=== PATIENT | female | born 1995 | race Caucasian/White ===

== ENCOUNTER 2022-11-30 12:22 | Emergency (ER) | payer OTHER ==
--- OUTSIDE RECORDS SUMMARY | 2022-11-30 12:40 | XMS REPORT | Continuity of Care Document ---
:1995 Author Organization [facility] t Address [address] [facility] [address] [place] [address] Care Team Providers Name Role Phone Linda Davalos NP Primary Care Physician Beatriz Zacarias Attending Clinician Unavailable Chapin Tian NP Attending Clinician CHAPIN TIAN Attending Clinician Unavailable Doctor Unassigned, [place] Attending Clinician Unavailable Eileen Berger Attending Clinician Unavailable Vandana Li Attending Clinician Unavailable Unknown, Attending Attending Clinician Unavailable Deidra Ramirez MD Attending Clinician DEIDRA RAMIREZ Attending Clinician Unavailable Beatriz Zacarias Admitting Clinician Unavailable Eileen Berger Admitting Clinician Unavailable Physician, No Primary or Family Admitting Clinician Unavaila ble Payers Payer Name Policy Type Policy Number Effective Date Expiration Date S ource Problems Condition Condition Condition Status Onset Resolution Last Treating Co mments Source Name Details Category Date Date Treatment Clinician Date History of History of Disease Active 2021-06 U nivers ovarian ovarian 2-28 ity of cyst cyst 00:00: [address] Pain Pain Disease Active 2021-06 Univers pelvic pelvic 2-28 ity of 00:00: [address] Well woman Well woman Disease Active 2022-1 U nivers exam with exam with 2-28 ity of routine routine 00:00: [place] gynecologi gynecologi 00 Me dical dorcas exam dorcas exam Branch Insomnia Insomnia Disease Active Unive rs 6-30 ity of 00:00: [place] 00 Medical Branch ADHD ADHD Disease Active Univers 6-30 ity of 00:00: [place] [facility] Bipolar 1 Bipolar 1 Disease Active Uni vers disorder, disorder, 6-30 [place] History of History of Disease Active U nivers hysterecto hysterecto 6-19 it y of my my 00:00: [place] [facility] Endometrio Endometrio Disease Active U nivers sis sis 6-30 ity of 00:00: [place] [id number] Medical Branch Depression Depression Disease Active U nivers 6-30 ity of 00:00: [place] [address] Medical Branch Anxiety Anxiety Disease Active Univers 6-30 ity of 00:00: [place] [facility] No known No known Disease Unive rs active active ity of problems problems [place] [facility] Allergies, Adverse Reactions, Alerts Allergy Allergy Status Severity Reaction(s) Onset Inactive Treating Comm ents Source Name Type Date Date Clinician No Known DA Active U 2020-0 [facility] No Known DA Active U 2020-0 [facility] Allergie 7-20 [facility] s 00:[facility] No Known DA Active U 2020-0 [facility] Allergie 7-16 Clear s 00:[place]: [place] [facility] No Known DA Active U 2020-0 [facility] Allergie 7-16 Clear s 00:00: [place] [address] [facility] No Known DA Active U 2019-1 [facility] Allergie 1-17 Clear s 00:00: [place] [address] [facility] No Known DA Active U 2020-1 [facility] Allergie 1-17 Clear s 00:00: [place] [address] [facility] No Known DA Active U 2020-1 [facility] Allergie 0-19 [facility] s 00:[facility]: [address] No Known DA Active U 2020-1 [facility] Allergie 0-19 Woman[facility] s 00:00: [address] NO KNOWN Drug Active Univers ALLERGIE Class ity of S [facility] Social History Social Habit Start Date Stop Date Quantity Comments Source Exposure to 2022-05-30 2022-06-09 [facility] 13:08:00 [facility] (event) Branch Tobacco use and 2022-06-09 2022-06-09 Smokeless tobacco Un iversity of exposure 00:00:00 00:00:00 non-user [facility] Alcohol intake 2022-06-09 2022-06-09 Current drinker Unive rsity of 00:00:00 00:00:00 of alcohol [facility] (finding) [place] Sex Assigned At [birth year] Universit y of 00:00:00 00:00:00 [facility] Smoking Status Start Date Stop Date Source Tobacco smoking consumption Univ ersity of [facility] unknown Branch Never smoked tobacco [facility] Medications Ordered Filled Start Stop Current Ordering Indication Dosage Frequency Signature Comments Components Source Medication Medication Date Date Medication? Clinician (SIG) Name Name clonazePAM 2021-06 Yes TAKE ONE Uni vers 0.5 mg 0-26 (1) ity of tablet 00:00: TABLET(S) BY MOUTH Medical TWICE A Branch DAY NEEDED. clonazePAM 2021-06 Yes TAKE ONE Uni vers 0.5 mg 0-26 (1) ity of tablet 00:00: TABLET(S) [place] BY MOUTH Medical TWICE A Branch DAY NEEDED. ARIPiprazol Yes Univer s e (ABILIFY) 9-30 ity of 15 mg 00:00: [place] tablet 00 Medical Branch Venlafaxine Yes Univer s 225 mg TR24 9-30 ity of 00:00: [facility] ARIPiprazol Yes Univer s e 15 mg 9-30 ity of tablet 00:00: [facility] Venlafaxine Yes Univer s 225 mg TR24 9-30 ity of 00:00: [facility] ARIPiprazol Yes Univer s e 15 mg 9-30 ity of tablet 00:00: [facility] Venlafaxine Yes Univer s 225 mg TR24 9-30 ity of 00:00: Medical Branch dextroamphe Yes Univer s tamine-amph 6-30 ity of etamine 00:00: [place] (ADDERALL) 00 Medical 30 mg Branch tablet dextroamphe Yes Univer s tamine-amph 6-30 ity of etamine 30 00:00: [place] mg tablet 00 Medical Branch dextroamphe Yes Univer s tamine-amph 6-30 ity of etamine 30 00:00: [place] mg tablet Medical Branch zolpidem Yes Univers (AMBIEN) 10 06-13 ity of mg tablet 00:00: Medical Branch zolpidem 10 Yes Univer s mg tablet 06-13 ity of 00:00: Medical Branch zolpidem 10 Yes Univer s mg tablet 06-13 ity of 00:00: [place] 00 Medical Branch No known No Univers medications ity of [facility] No known No Univers medications ity of [facility] Immunizations Ordered Filled Immunization Date Status Comments [facility] e Immunization Name Name Influenza Virus 2022-03-09 Completed Universit y of Vaccine Quad IM, 00:00:00 [facility] dical Preserv and ABX Branch Free 6 MO-64 YRS TDAP 2022-03-09 Completed University of 00:00:00 [facility] Influenza Virus 2022-03-09 Completed Universit y of Vaccine Quad IM, 00:00:00 [facility] dical Preserv and ABX Branch Free 6 MO-64 YRS TDAP 2022-03-09 Completed University of 00:00:00 [facility] Influenza Virus 2022-03-09 Completed Universit y of Vaccine Quad IM, 00:00:00 [facility] dical Preserv and ABX Branch Free 6 MO-64 YRS TDAP 2022-03-09 Completed University of 00:00:00 [facility] SARS-COV-2 COVID-19 2020-09-05 Completed Unive rsity of VACCINE, BIVALENT 00:00:00 [facility] edical (MODERNA BOOSTER) Branch SARS-COV-2 COVID-19 2020-09-05 Completed Unive rsity of VACCINE, BIVALENT 00:00:00 [facility] edical (MODERNA BOOSTER) Branch SARS-COV-2 COVID-19 2020-09-05 Completed Unive rsity of VACCINE, BIVALENT 00:00:00 [place] Holli macdonald (MODERNA BOOSTER) Branch SARS-COV-2 COVID-19 2020-08-09 Completed Unive rsity of VACCINE - (MODERNA) 00:00:00 [facility] SARS-COV-2 COVID-19 2020-08-09 Completed Unive rsity of VACCINE - (MODERNA) 00:00:00 [facility] SARS-COV-2 COVID-19 2020-08-09 Completed Unive rsity of VACCINE - (MODERNA) 00:00:00 [facility] Vital Signs Vital Name Observation Time Observation Value Comments Source Systolic blood 2022-06-09 113 mm[Hg] University of pressure 19:17:00 [facility] Diastolic blood 2022-06-09 78 mm[Hg] University o f pressure 19:17:00 [facility] Heart rate 2022-06-09 97 /min [facility] 19:17:00 [facility] Body height 2022-06-09 162.6 cm University 19:17:00 [facility] Body weight 2022-06-09 85.276 kg University 19:17:00 [facility] BMI 2022-06-09 32.27 kg/m2 University 19:17:00 [facility] Oxygen saturation 2022-06-09 95 /min [facility] in Arterial blood 19:17:00 [facility] by Pulse oximetry [place] Systolic blood 2020-02-23 113 mm[Hg] University of pressure 03:01:00 [facility] Diastolic blood 2020-02-23 79 mm[Hg] University o f pressure 03:01:00 [facility] Heart rate 2020-02-23 67 /min University 03:01:00 [facility] Body temperature 2020-02-23 36.94 Shweta [facility] 03:01:00 [facility] Respiratory rate 2020-02-23 17 /min [facility] 03:01:00 [facility] Oxygen saturation 2020-02-23 99 /min [facility] in Arterial blood 03:01:00 [facility] by Pulse oximetry Branch Body height 2020-02-23 162.6 cm [facility] 01:45:00 [facility] Body weight 2020-02-23 77.111 kg Simultaneous University 01:45:00 filing. User may [place] [facility] not have seen Branch previous data. BMI 2020-02-23 29.18 kg/m2 [facility] 01:45:00 [facility] Systolic blood 2020-02-23 113 mm[Hg] [place] of pressure 03:01:00 [facility] Diastolic blood 2020-02-23 79 mm[Hg] [place] o f pressure 03:01:00 [facility] Heart rate 2020-02-23 67 /min [facility] 03:01:00 [facility] Body temperature 2020-02-23 36.94 Shweta [facility] 03:01:00 [facility] Respiratory rate 2020-02-23 17 /min [facility] 03:01:00 [facility] Oxygen saturation 2020-02-23 99 /min [facility] in Arterial blood 03:01:00 [facility] by Pulse oximetry [place] Body height 2020-02-23 162.6 cm [facility] :45:00 [facility] Body weight 2020-02-23 77.111 kg Simultaneous [facility] 01:45:00 filing. User may [place] [facility] not have seen Branch previous data. BMI 2020-02-23 29.18 kg/m2 [facility] 01:45:00 [facility] Procedures Procedure Date / Time Performed Performing Clinician [facility] ASSIGNMENT OF BENEFITS 2022-06-09 19:07:41 Doctor Unassigned, No [facility] Name [facility] [id number] 2020-06-14 00:00:00 CHAKR.07 [facility] [id number] 2020-06-14 00:00:00 CHAKR.07 [facility] US PELVIS > 2020-02-23 03:21:05 Deidra Ramirez [facility] 14 WEEKS [facility] Branch LIPASE 2020-02-23 02:56:[address] [facility] COMP. METABOLIC PANEL 2020-02-23 02:56:00 Deidra Ramirez [facility] ([id number]) [facility] CBC WITH DIFF 2020-02-23 02:56:[address] [facility] URINALYSIS 2020-02-23 01:54:[address] [facility] NOTICE OF PRIVACY 2020-02-23 01:37:10 Doctor Unassigned, No [facility] Name Medical [place] CONSENT/REFUSAL FOR 2020-02-23 01:36:53 Doctor Unassigned, No Un [facility] DIAGNOSIS AND Name Medical Branch TREATMENT Encounters Start End Encounter Admission Attending Care Care Encounter Source Date/Time Date/Time Type Type Clinicians Facility Department ID 2020-06-17 Inpatient MARTINEZ Luciano LD [id number] [facility] 10:00:00 Beatriz 46 [facility] [place] 2020-06-13 Inpatient NADER ZacariasWH ADRIENNE [id number] [facility] 16:46:00 Beatriz 38 [facility] [place] 2020-04-29 Inpatient NADER ZacariasWH ADRIENNE [id number] [facility] 11:47:00 Beatriz 52 [facility] [place] 2020-03-31 Inpatient NADER ZacariasWH ADRIENNE [id number] [facility] 21:16:00 Beatriz 71 [facility] [place] 2022-06-09 2022-06-09 Office Tammie [facility] [id number] Univers 13:00:00 13:30:00 Visit Chapin PORTILLO [id number] it y of WOMEN'S 4.2.7.2.686 [facility] [id number] [facility] 134 Branch 2022-06-09 2022-06-09 Outpatient R CHAPIN TIAN [facility] [id number] Univers 13:00:00 13:00:00 CHAPIN TIAN ity [facility] 2022-06-09 2022-06-09 Orders Doctor GARCIA [id number] Univers 00:00:00 00:00:00 Only Unassigned, NATHAN [id number] ity of [place] [facility] [id number] [facility] [id number] [facility] 009 Branch 2020-12-29 2020-12-30 Inpatient MARTINEZ Gibson MEDI.01 [id number] [facility] 16:32:00 13:38:00 Eileen 06 [facility] [place] 2020-12-26 2020-12-26 Outpatient NADER Berger LABO [id number] [facility] 14:52:00 14:52:00 Eileen 33 [facility] 2020-11-24 2020-11-24 Outpatient Vandana Crooks [facility] RADI F00 [id number] [facility] 14:31:00 14:31:00 96 Woman s [facility] 2020-02-27 2020-02-27 Letter Unknown, UNIVERSIT [id number] 00:00:00 00:00:00 (Out) Attending [facility] [id number] [facility] 4.2.7.2.686 [id number] [facility] 2020-02-27 2020-02-27 Letter Unknown, UNIVERSIT [id number] Univers 00:00:00 00:00:00 (Out) Attending [facility] [id number] ity of [facility] 4.2.7.2.686 [facility] [id number] [address] 2020-02-22 2020-02-22 Emergency [facility] [id number] 20:47:00 23:37:00 [facility] [id number] [place] 4.2.7.2.686 [place] [id number] [facility] 2020-02-22 2020-02-22 Emergency [facility] [id number] Univers 20:47:00 23:37:00 [facility] [id number] ity of [place] 4.2.7.2.686 [facility] [id number] [address] 2020-02-22 2020-02-22 Emergency X [facility] ERT [id number] Univers 20:47:00 20:47:00 [facility] Results Test Description Test Time Test Comments Results Result Comments Source UTERUS,OTHER THAN PROLAPSE/YARIEL 2020-12-31 11:17:00 Test Item Value Reference Range Interpretation Comme nts UTERUS,OTHER RUN DATE: THAN 12/31/20 [facility] PAGE 1 RUN TIME: 1913 Specimen Inquiry RUN USER: INTERFACE PROLAPSE/YARIEL PATIENT: (test code = EMMA SHAFFER [id number] LOC: [place] #: [id number] AGE/SX: ROOM: [facility] REG: [facility] 12/29/20REG DR: Eileen Berger MD : 89 BED: A DIS: 12/30/20 STATUS: DIS Matt TLOC: SPEC #: [id number] RECD: STATUS: OWEN FOLEY #: [id number] HARDEEP: 12/29/20- SUBM DR: Eileen Berger MD ENTERED: 12/30/20 SP TYPE: [facility]: ORDERED: LEVEL V SURGICA/6 CODES: [id number] - UTERUS, NOS [id number] - PERITONEUM, NO S PROCEDURES: LEVEL V SURGICA (Incomplete) TISSUES: PERITONEUM, NOS - PERITONEUM X5 UTERUS, NOS - UTERUS,CERVIX,BILATERAL TUBES CLINICAL HISTORY 25 year old, endometriosis (wpd) FINAL DIAGNOSIS Right posterior culdesac, excision: peritoneal tissue with fibrosis and bony histiocytes suggestive of en dometriosis Posterior culdesac, excision: peritoneal tissue with fibrosis and bony histiocytes suggest kandis of endometriosis Left posterior cervix, excision: peritoneal tissue with fibrosis and bony histiocyte s suggestive of endometriosis Left pelvic sidewall, excision: endometriosis Right pelvic sidewall, excis ion: endometriosis Uterus, bilateral fallopian tubes, hysterectomy and bilateral salpingectomy: cer vix - focal parakeratosis, no dysplasia identified endometrium - benign with hormone effect myometrium - no significant pathologic alteration uterine serosa - focal fibrous adhesions right and left fal lopian tubes - benign paratubal cysts CPT: 44305 x5, 82308 CONTINUED ON NEXT PAGE RUN DATE: 12/31/20 [facility] PAGE 2 RUN TIME: 1913 Specimen Inquiry RUN USER: INTERFACE SPEC #: [id number] PATIENT: EMMA SHAFFER #[id number] (Continued) FINAL DIAGNOSIS (Continued) lsh/wpd GROSS DESCRIPTION ANATOMIC SOURCE OF TISSUE (per Requisition): 1. Right posterior culdesac 2. Posterior culdesac 3. Left posterior cervix 4. Left pelvic sidewall 5. Right pelvic sidewall 6. Uterus, cervix, bilateral fallopian tubes Each specimen is labeled with the patient's name and medical r ecord number. Specimen #1 is designated "right posterior culdesac" and consists of a 0.6 cm orr-pin k soft tissue, submitted in toto in A1. Specimen #2 is designated "posterior culdesac" and consists of a 2.5 aggregate of orr-pink soft tissues, submitted in toto in B1. Specimen #3 is designated "left posterio r cervix" and consists of a 0.8 cm orr-pink soft tissue, submitted in toto in C1. Specimen #4 is design ated "left pelvic sidewall" and consists of a 1.0 cm orr-pink soft tissue, submitted in toto in D1. Spe cimen #5 is designated "right pelvic sidewall" and consists of a 2.0 cm orr-white soft tissue, submi tted in toto in E1. Specimen #6 is designated "uterus, cervix, bilateral fallopian tubes". The specim en consists of a 110 gm, 8.5 x 8 x 6 cm uterus with cervix (3.0 x 3.0 cm, with a 1.3 cm slit-like os) and bilateral tubes (7.5 x 0.9 cm right and left). The serosa is orr-pink with adhesions. The orr-pink endometrial cavity measures 3.5 x 2.5 cm. The endometrial thickness averages cm. The myometrium is orr-pink and trabecular with a 1.7 cm average thickness. The endocervix is orr-pink. The ectocervix is white-pink and dull. The right fallopian tube is pink-purple with fimbriae. Sectioning reveals a pinpoint lumen. The left fallopian tube is pink- purple with fimbriae. Sectioning reveals a pinpoin t lumen. Supervising Nurse sections are submitted as follows: F1 - anterior cervix F2 - posterior cervix F3 - anterior endomyometrium, full-thickness F4 - posterior endomyometrium with serosal adhesions CONTINUED ON NEXT PAGE RUN DATE: 12/31/20 [facility] PAGE 3 RUN TIME: 1913 Specimen Inquiry RUN USER: INTERFACE SPEC #: [id number] PATIENT: EMMA SHAFFER #[id number] (Continued) MIGNON HUBER (Continued ) F5 - right fallopian tube F6 - left fallopian tube ronnell/stephanie 12/30/20 Signed Charito Garcia MD 12/31/20 1117 END OF REPORT CBC W/AUTO [id number] 05:45:00 Test Item Value Reference Range Interpretation Comments WHITE BLOOD CELL (test code = WBC) 14.7 K/mm3 6.5-12.3 H RED BLOOD CELL (test code = RBC) 4.30 M/mm3 3.51-4.69 N HEMOGLOBIN (test code = HGB) 13.4 g/dL 10.1-13.8 N HEMATOCRIT (test code = HCT) 39.8 % 32.5-41.8 N MEAN CELL VOLUME (test code = MCV) 92.6 fL 84.6-96.6 N MEAN CELL HGB (test code = MCH) 31.2 pg 27.3-33.9 N MEAN CELL HGB CONCETRATION (test 33.7 gm/dL 32.0-34.2 N code = MCHC) RED CELL DISTRIBUTION WIDTH (test 12.4 % 12.2-16.3 N code = RDW) PLATELET COUNT (test code = PLT) 320 K/mm3 134-363 N MEAN PLATELET VOLUME (test code = 10.6 fL 9.2-12.7 N MPV) NEUTROPHIL % (test code = NT%) 84.6 % 57.9-77.3 H LYMPHOCYTE % (test code = LY%) 8.0 % 14.5-29.7 L MONOCYTE % (test code = MO%) 7.0 % 3.6-10.2 N EOSINOPHIL % (test code = EO%) 0.0 % 0.0-3.0 N BASOPHIL % (test code = BA%) 0.1 % 0.1-0.9 N NEUTROPHIL # (test code = NT#) 12.4 K/mm3 LYMPHOCYTE # (test code = LY#) 1.2 K/mm3 MONOCYTE # (test code = MO#) 1.0 K/mm3 EOSINOPHIL # (test code = EO#) 0 K/mm3 BASOPHIL # (test code = BA#) 0.0 K/mm3 RBC MORPHOLOGY REQUIRED (test code NORMAL NORMAL = RBCM) PLATELET MORPHOLOGY REQUIRED (test NORMAL NORMAL code = PLTMR) AG HEPATITIS B [id number] 21:41:00 Test Item Value Reference Range Interpretation Comments AG HEPATITIS B SURFACE (test code NONREACTIVE NONREACTIVE = HBSAG) IS CONSENT FORM SIGNED FOR HIV TESTING? YAB HEPATITIS C [id number] 21:41:00 Test Item Value Reference Range Interpretation Comments AB HEPATITIS C (test code = NONREACTIVE NONREACTIVE HCVAB) SIGNAL TO CUTOFF (test code = <0.02 <0.80 N CUTOFF) IS CONSENT FORM SIGNED FOR HIV TESTING? YAB HIV 1 21:41:00 Test Item Value Reference Range Interpretation Comments AB HIV 1 2 (test code = NONREACTIVE INDEX NONREACTIVE [id number]) IS CONSENT FORM SIGNED FOR HIV TESTING? YAB HIV 1 21:41:00 Test Item Value Reference Range Interpretation Comments AB HIV 1 2 (test code = NONREACTIVE INDEX NONREACTIVE [id number]) IS CONSENT FORM SIGNED FOR HIV TESTING? YCOVID 19 Asymptomatic IH [id number] 15:50:00 Test Item Value Reference Range Interpretation Comments COVID 19 NEGATIVE NEGATIVE This test has b een Asymptomatic IH AG authorize d only for the (test code = detection ofpro teins from COVNONPUIAG) SARS-CoV-2, not for any other viruses orpathogens. Ne gative results should be treated as presumptive andconfirmed wi th a molecular assay , if necessary for patientmanageme nt. Negative result s do not rule out COVID- 19 andshould not b e used as the sole basis for treatment orpat ient management deci sions, including infec tion controldecision s. Negative result s should be considered i n thecontext of a patient's recent exposure s, history and thepresence of clinical signs and symptoms consis tent withCOVID-19. T his test has not been FD A cleared or approved; th e test hasbeen authori zed by FDA under an Emerge ncy Use Authorization(E UA) for use by laborato elissa certified under the CLIA thatmeet the re quirements to perform mode rate, high or waivedcomple xity tests. This fernando t is authorized for use at thePoint of Car e (POC), i.e., in patien t care settingsoperati ng under a CLIA Certificat e of Waiver, Certifi corie ofCompliance, o r Certificate of Accreditation. This test is only authori zed for the duration of thedeclaration that circumstances e xist justifying theauthorizatio n of emergency use o f in vitro diagnostic test sfor detection and/o r diagnosis of CO VID-19 under Zlwjfex68 4(b)(1) of the Act, 21 U.S .C. 360bbb-3(b)(1), unless theauthorizatio n is terminated or r evoked sooner. AG HEPATITIS B [id number] 14:33:00 Test Item Value Reference Range Interpretation Comments AG HEPATITIS B SURFACE (test code NONREACTIVE NONREACTIVE = HBSAG) IS CONSENT FORM SIGNED FOR HIV TESTING? YAB HEPATITIS C [id number] 14:33:00 Test Item Value Reference Range Interpretation Comments AB HEPATITIS C (test code = NONREACTIVE NONREACTIVE HCVAB) SIGNAL TO CUTOFF (test code = <0.02 <0.80 N CUTOFF) IS CONSENT FORM SIGNED FOR HIV TESTING? YAB HIV 1 14:33:00 Test Item Value Reference Range Interpretation Comments AB HIV 1 2 (test code = [id number]) NONREACTIVE IS CONSENT FORM SIGNED FOR HIV TESTING? YHCG SERUM [id number] 13:30:00 Test Item Value Reference Range Interpretation Comments HCG SERUM QUAL (test code = HCGQL) NEGATIVE URINALYSIS [id number] 13:14:00 Test Item Value Reference Range Interpretation Comments UA COLOR (test code = COLU) STRAW YELLOW UA APPEARANCE (test code = CLEAR CLEAR APPU) UA GLUCOSE DIPSTICK (test code NEGATIVE NEG = DGLUU) UA BILIRUBIN DIPSTICK (test NEGATIVE NEG code = BILU) UA KETONE DIPSTICK (test code NEGATIVE NEG = KETU) UA SPECIFIC GRAVITY (test code 1.010 1.001-1.035 N = SGU) UA BLOOD DIPSTICK (test code = 2+ NEG A JACY) UA PH DIPSTICK (test code = 6.0 5-9 JOSIAH) UA PROTEIN DIPSTICK (test code NEGATIVE NEG = PROU) UA UROBILINIOGEN DIPSTICK NEGATIVE mg/dL NEG (test code = URO) UA NITRITE DIPSTICK (test code NEG NEG = LOLA) UA LEUKOCYTE ESTERASE DIPSTICK NEG NEG (test code = LEUU) UA WBC (test code = WBCU) 0-2 #/hpf NONE SEEN UA RBC (test code = RBCU) 0-2 #/hpf NONE SEEN UA EPITHELIAL CELLS (test code RARE #/HPF RARE-FEW = EPIU) UA HYALINE CAST (test code = 0-2 #/hpf A HYALU) UA MUCUS (test code = MUCU) RARE NONE SEEN URINE SAMPLE: CLEAN CATCHCBC W/AUTO [id number] 13:00:00 Test Item Value Reference Range Interpretation Comments WHITE BLOOD CELL (test code = WBC) 6.6 K/mm3 6.5-12.3 N RED BLOOD CELL (test code = RBC) 4.63 M/mm3 3.51-4.69 N HEMOGLOBIN (test code = HGB) 14.6 g/dL 10.1-13.8 H HEMATOCRIT (test code = HCT) 44.1 % 32.5-41.8 H MEAN CELL VOLUME (test code = MCV) 95.2 fL 84.6-96.6 N MEAN CELL HGB (test code = MCH) 31.5 pg 27.3-33.9 N MEAN CELL HGB CONCETRATION (test 33.1 gm/dL 32.0-34.2 N code = MCHC) RED CELL DISTRIBUTION WIDTH (test 12.5 % 12.2-16.3 N code = RDW) PLATELET COUNT (test code = PLT) 296 K/mm3 134-363 N MEAN PLATELET VOLUME (test code = 10.8 fL 9.2-12.7 N MPV) NEUTROPHIL % (test code = NT%) 49.9 % 57.9-77.3 L LYMPHOCYTE % (test code = LY%) 37.9 % 14.5-29.7 H MONOCYTE % (test code = MO%) 9.4 % 3.6-10.2 N EOSINOPHIL % (test code = EO%) 2.0 % 0.0-3.0 N BASOPHIL % (test code = BA%) 0.6 % 0.1-0.9 N NEUTROPHIL # (test code = NT#) 3.3 K/mm3 LYMPHOCYTE # (test code = LY#) 2.5 K/mm3 MONOCYTE # (test code = MO#) 0.6 K/mm3 EOSINOPHIL # (test code = EO#) 0.13 K/mm3 BASOPHIL # (test code = BA#) 0.0 K/mm3 RBC MORPHOLOGY REQUIRED (test code NORMAL NORMAL = RBCM) PLATELET MORPHOLOGY REQUIRED (test NORMAL NORMAL code = PLTMR) - US PELVIS [id number] 15:52:00 [facility] 1995 Sex: F Patient Name: EMMA SHAFFER Unit No: [id number] EXAMS: CPT CODE: [id number] US PELVIS COMPLETE 02610 PELVIC ULTRASOUND, 11/24/2020: COMPARISON: None CLINICAL HISTORY: IUD LOCATION TECHNIQUE: Transabdominal and endovaginal scanning was performed. FINDINGS: The uterus measures 8.0 x 4.3 x 5.4 cm. The endometrial stripe measured 4 mm in thickness. T-shaped IUD is located within the endometrium and appears to be in satisfactory position. No uterine fibroids were seen. The right ovary measures 4.1 x 2.4 x 2.1 cm and appears normal. The left ovary measures 3.9 x 2.1 x 2.5 cm and appears normal. Doppler flow is demonstrated in both ovaries. No free pelvic fluid. IMPRESSION: Intrauterine device is located within the uterus. No acute abnormality identified. at 1552 Reported and signed by: Roc Sullivan MD CC: Technologist: Juliana Hough RDMS Probe: Trnscrbd D/ (1552) [id number] Orig Print D/T: S: 11/24/2020 (9466) [facility] NAME: EMMA SHAFFER Radiology Department PHYS: Vandana Sebastian [facility] [address] : 1995 AGE: 25 SEX: F [place], [place] [address] LOC: F.RAD PHONE #: [phone] EXAM DATE: 11/24/2020 STATUS: REG CLI FAX #: [phone] RAD NO: Page 1 Signed Report Patient Name: EMMA SHAFFER Unit No: [id number] EXAMS: CPT CODE: [id number] US PELVIS COMPLETE 80777 (Continued) 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 subcutaneou sly for DVT prophylaxis. She was prepped and draped in the usual sterile barrow er. Dr. Watkins proceeded to perform cystoscopy and placed bilateral ureteral stents. De La Rosa catheter was then placed. Please see his dictation fo r details of his procedure. A weighted speculum was then placed in the vagina and anter ior lip of the cervix was grasped with single-tooth tenaculum. Uterus was gently sounded to 10 cm. Stay sutures of 0 Prolene were placed at 3 o'clock an d 9 o'clock. A 10-cm MELQUIADES uterine manipulator, 3.5 cm colpotomizer ring, a nd vaginal occluder were then placed in the uterus, on the cervix, and in the vagina respectively. These were attached to stay sutures. Vaginal occluder was f illed with 60 mL of saline. The patient was then placed flat. Attent ion was then turned to the abdomen. An 8-mm vertical incision was made through the umbilicus. With the abdomen tented up, Veress needle was passed through what was felt to be fascia and peritoneum. Hanging drop test was within normal limits. CO2 gas was then used to insufflate the abdomen with pressure limit set at 20 mmHg. After pressure limit was achieved, the Veress needle was removed, 8-mm bl adeless trocar was inserted easily. Laparoscope confirmed safe entry. The pa tient was then placed in Trendelenburg. Survey of the upper abdom en was within normal limits. Including the appendix, survey of the pelvis revealed appr oximately 8-week size uterus, normal tubes and ovaries bilaterally. There was noted to be adhesion band in the posterior cul-de-sac, so me areas that was suspicious for endometriosis were also noted in the posterior compartment. Three ancillary ports were then placed under direct visualization, one in the r ight lower quadrant, one in left lower quadrant, and AirSeal port i n the left upper quadrant. Laparoscope was removed, pressure limit was dropped to 15 mmHg. Robot was docked. Fenestrated bipolar instrument was placed in lef t lower quadrant. Monopolar scissors were placed in right lower quadrant. The pa tient has been pretreated with IV Benadryl, ICG dye was injected intravenously, and endometrial impl ants were noted on the left pelvic sidewall, left posterior cervix, in the posterior cul-de-sac, and right pelvic sidewall. No lesions were noted in the an terior cul-de-sac. Ureters were easily identified due to the lighted stents . At this point, Dr. Lynn proceeded to excise endometriosis in the posterior cul-de-sac as well as lysed the adhesion band. These implants in the band we re in close proximity to the rectum. Please see his dictation for details of his part of the procedure. Attention was then turned to the left pelvic alexia ewall. Ureter was identified. Peritoneum on the posterior left cervix was gras ped and incised. The endometrial implants were carefully circumscribe d and carefully excised using monopolar scissors. Attentio n was then turned to the implant on the left pelvic sidewall. Incision was made in the peritoneum. H ydrodissection was performed. Lesions were then carefully circumscribed and carefully excised using monopolar PATIENT NAME: EMMA SHAFFER [id number] scissors. Attention was then turned to t he right side. Ureter was again easily identified due to lighted stents. Incision was m sudhir in the peritoneum. Hydrodissection dissection was performed . Lesions on the right pelvic sidewall were carefully circumscribed and carefully excis ed. At this point, no other obvious lesions were noted. Attention was then t urned to the left round ligament. The left round lig ament was cauterized using bipolar instrument, then divided using monopolar scissors. Left fallopian tube was elevated and mesosalpinx was incised from the fimbriated end to the cornual area. Left utero-ovarian ligament was then cauterized using bipolar instrument, then divided using monopolar scissors. Bladder was th en back filled. Anterior leaf of the peritoneum was then incised and carried o ut medially to develop the bladder flap. Bladder was dissected off the lowe r uterine segment. Uterine vessels were skeletonized on left side by incisi ng posterior peritoneum. Uterine vessels were then cauterized at the leve l of internal cervical os. Attention was then turned to the right side. Rig ht round ligament was cauterized using bipolar instrument and then divided using monopolar scissors. Right fallopian tube was elevated and mesosalpin x was incised from the fimbriated end to the cornual area. Righ t uterine ligament was then cauterized using bipolar instrument, then divided u sing monopolar scissors. Anterior leaf of the peritoneum was then incised and carried o ut medially to meet the other side. Bladder was additionally dissected off the lower uterine segment on the right side. Uterine vessels were skeletonized on the right side by incising posterior peritoneum. Uterine vessels were then cauterized at the level of internal cervical os. After assuring that the bl adders were dissected off the lower uterine segment, colpotomy was performed a t the cervicovaginal junction anteriorly from 10 o'clock to 2 o'clock. Uterine vessels were then cauterized again on the right side and were divided using m onopolar scissors. Colpotomy was continued posteriorly over to the left side. Left uterine vessels were again cauterized and then divided using monopola r scissors. Colpotomy was completed. Uterus as well as bilateral t ubes was delivered through the vagina. A 0 V-Loc suture x2 was introduced in pelvis. St erile sponge in a glove was placed in vagina to maintain pneumoperit oneum. Vaginal cuff was then closed in a running fashion, first sta rting from left apex over to right apex and ran back towards the midline for 2 stitches. Second sutur e was ran from the right apex over to the left apex and also ran back towards the midline for 2 stitches. Sutures were cut flush with the cuff. Pe lvis was then thoroughly irrigated and inspected under low pressure. Good hemostasis wa s confirmed. Ureters again were identified easily bilaterally due to the li ghted stents. Good hemostasis was again noted. All instruments were then remov ed. Robot was undocked. Pneumoperitoneum was evacuated. Trocars were rem olvin. Umbilical port site fascia was closed using 0 Vicryl interru pted suture. Skin was closed using 4-0 Vicryl interrupted suture in all port sites and sealed with Dermabond. Marcaine 0.25% was injected in all port sites. De La Rosa cath eter and bilateral ureteral stents were removed. Speculum exam of va hallie revealed that the cuff was intact and hemostatic. No vaginal lacerations were note d. The patient was removed from dorsal lithotomy position, awoken from gene ral anesthesia without difficulty. The patient tolerated the procedure well. Throughout the case, Luis Willams acted as environmental emergencies assistant. He provid ed protection and retraction, performed suction for visual ization. He participated in positioning the patient as well as closure of the wo unds. Without his assistance, the surgery could not have been performed safely or to adequate accept ed medical standards. Therefore, his assistance was considered medical ly indicated and necessary. Dictated By: Eileen Berger MD PATIENT NAME: EMMA SHAFFER [id number] WT: OP:FMARCELLO//LIZZETH Conf#: [id number]/DID#: [id number] Authenticated by Eileen Berger MD On 01/05/20 11:36:46 AM Electronically Signed by Eileen Berger MD on at 1137 PATIENT NAME: EMMA SHAFFER 8406 2020-12-29 16:24:00-00:00 [id number] [facility] [address] [place] [address] PATIENT NAME: EMMA SHAFFER ADMIT DATE: 1 ACCOUNT NO: [id number] ROOM NO: [facility] AGE: 25 SEX: F ADMITTING PHYSICIAN: Eileen Berger MD ATTENDING PHYSICIAN: Eileen Berger MD OPERATION DATE: 12/29/2020 SURGEON: Roderick Lynn MD COMPUTER SYSTEMS SECURITY ADMINISTRATOR: Luis Willams SA PREOPERATIVE DIAGNOSES: 1. Intraoperative consultation for pelvic adhesi ons. 2. Endometriosis and pelvic adhesions. POSTOPERATIVE DIAGNOSES: 1. Intraoperative consultation for pelvic adhesi ons. 2. Endometriosis and pelvic adhesions. PROCEDURES PERFORMED: 1. Intraoperative consultation for excision of p elvic endometriosis and for lysis of pelvic adhesions. 2. Robotic-assisted laparoscopic lysis of deep p elvic adhesions. 3. A partial-thickness proctorrhaphy with primar y repair robotically laparoscopic-assisted. ANESTHESIA: General. DEVICES: None. IMPLANTS: None for this portion of procedure. COMPLICATIONS: None apparent. SPECIMENS: Right posterior cul-de-sac and left p osterior cul-de-sac. ESTIMATED BLOOD LOSS: 10 mL for this portion of the procedure. INDICATIONS: Intraoperative consultation was called for secondary to a history of pelvic adhesions for the patient stated that she was informed of the prior laparoscopic surgery that sh e had fusion between her rectum and back wall of the vagina. She was also noted to have significant e ndometriosis scarring. FINDINGS: Please see dictated operative report f rom Dr. Berger regarding her portion of procedure. Robot was docked and the p orts were in place. There was noted to be some pelvic scarring and pel lyla adhesions present, particularly on the left side deep in the pelvis at the posterio r cul-de-sac. There was also noted to be some scarring over the rectum deep i n the pelvis. PATIENT NAME: EMMA SHAFFER [id number] We then took control over th e robot and removed what appeared to be a scar over the right lower rectum at the peritoneal reflect ion in the septum between the rectum and vagina. This was very delicate and th e area was directly over the rectum. Upon doing so, we llanos d a partial-thickness proctorrhaphy which we closed with 3-0 Vicryl lemberting suture. No full thick ness was encountered. At this point, the left side was also no laura to be with some scarring bands and some adhesion, which was present. This seemed ab normal and there seemed to be some tenting of the rectum to the side. We isola laura the area and removed the peritoneum and some other sc arring that could have been endometriosis over this area and created what appeared to be a normal-ap pearing pelvis. This was done with careful blunt and sharp dissection. There was a stitch also placed in this area on the left side for hemostasis purposes. The area was checked for hemostasis, whi ch appeared to be intact. The case was then turned over to Dr. Berger for her portion. Pl ease see dictated operative report. The scar tissue was noted to be dense in the area of the low rectum on the left side. PROCEDURE IN DETAIL: The pat ient was under general anesthesia and the robot was docked and the patient was i n stable condition when intraoperative consultation was called for secondary to pelvic adhesions and potentially endometriosis adjacent to the lower rectum. There was noted to be some scarring between the rectovaginal septum including on the left side. Please see dictated operative report for details from Dr. Berger. At this point, the rectovaginal septum was inspe cted and there was scarring noted on the right posterior cul-de-sac. This wa s right over the rectum. We removed the peritoneum over this area and the sc arring. Upon doing so, there was noted to be a partial-thickness proctorrhaph y in this area. We oversewed this with 3-0 Vicryl lembert ing sutures with good reapproximation of tissue. No defect was appreciated. At this point, the left side was then inspected and there were these bands or folds that appeared to have formed from scarring in the area. We noted that ther e were some peritoneal pockets as well, which could represent endometriosis. Therefore, we e lected to remove this area as well and take down these bands of tissue between the rect um and the vagina. These were taken down with blunt and sharp, and minimal monica ctrocautery dissection. Upon doing so, we removed the left posterior cul-de-s ac peritoneum as well. All of the peritoneal resection site essentially remove d everything in the posterior cul-de-sac was close to 10 x 8 cm. At this point, the area was checked for hemostas is and appeared to be intact. On the left side, we did place a stitch for hemo stasis purposes. The case was then turned back over to Dr. Berger. Please see dictated operative report for details of procedure. All counts were correct at the end of this porti on of the procedure. Dictated By: Roderick Lynn MD WT: OP:F.ZO/NILESH/LIZZETH PATIENT NAME: EMMA SHAFFER [id number] Conf#: [id number]/DID#: [id number] Authenticated by Roderick Lynn MD On 12/31 10:58:03 AM at 1058 PATIENT NAME: EMMA SHAFFER [id number] 2020-06-15 06:42:00-00:00 [facility] ([facility]) OB Disch REPORT#:[id number] REPORT STATUS: Signed DATE:06/15/20 TIME: 641 PATIENT: EMMA COYNE UNIT #: [id number] ROOM/BED: [address] : [address] AGE: 24 SEX: F ATTEND: Yesenia Zacarias MD ADM AUTHOR: Soha Diego MD * ALL edits or amendments must be made on the [employer]/computer document * Subjective Subjective Admission EGA: Weeks: 38 Days: 4 EGA at delivery (wks/days): 38 weeks Status/day: post (day #1) Patient reports: Patient reports: Yes: normal lochia, pain management effective, tolerating po well, voiding well, voiding without pain, tolerating ambulatio n, flatus. No: complaints. Objective General VS: Vital Signs Date Temp Pulse Resp B/P B/P Mean Pulse Ox FiO2 06/14-06/15 98.2-98.5 63-69 18-19 102-129/63-76 96 Last Documented: Result Date Time B/P 06/15 0011 Temp 98.5 06/15 0011 Pulse 64 06/15 0011 Resp 18 06/15 0011 Pulse Ox 96 06/14 1610 B/P Mean 85.0 06/14 0245 PATIENT WEIGHT: Weight (lb): Weight (oz): Weight (kg): 89.850219 Physical Exam Neuro: Exam: alert, oriented x3, normal speech, CNII-X II grossly intact Abdomen: post gravid, soft, no abnormal tenderne ss, no guarding, no rebound tenderness Uterus: involution appropriate, non-tender Fundus: firm, below the umbilicus Lochia: normal Lower extremities: Edema: trace Results Findings/Data: Laboratory Tests: 06/13 06/13 1745 1733 Hematology WBC (6.6 - 12.1 K/mm3) 12.6 H RBC (3.45 - 5.01 M/mm3) 4.10 Hgb (10.7 - 13.9 g/dL) 11.7 Hct (32.1 - 42.1 %) 36.1 MCV (84.1 - 94.8 fL) 88 MCH (27 - 35 pg) 28.5 MCHC (32.2 - 34.1 gm/dL) 32.4 RDW (12.4 - 16.5 %) 13.1 Plt Count (133 - 385 K/mm3) 234 MPV (9.1 - 12.7 fl) 10.9 Neut % (Auto) (56.5 - 79.4 %) 78.4 Lymph % (Auto) (14.3 - 34.3 %) 14.2 L Baca % (Auto) (5.1 - 10.4 %) 6.4 Eos % (Auto) (0.1 - 3.0 %) 0.4 Baso % (Auto) (0.1 - 1.0 %) 0.2 Neut # (Auto) (K/mm3) 9.9 Lymph # (Auto) (K/mm3) 1.8 Baca # (Auto) (K/mm3) 0.8 Eos # (Auto) (K/mm3) 0.05 Baso # (Auto) (K/mm3) 0.0 Serology Treponema pallidum Ab (NONREACTIVE) NONREACTIVE Hep Bs Antigen (NONREACTIVE) NONREACTIVE Hepatitis C Antibody (NONREACTIVE) NONREACTIVE Hep C Ab Signal/Cutoff (<0.80) 0.07 HIV 1 2 Antibody (NONREACTIVE) NONREACTIVE SARS-CoV-2 Ag (Rapid) (NEGATIVE) NEGATIVE Discharge Summary General Problem List/A P: 1. 38 weeks gestation of Date of admission: Date of admission: 06/13/20 Admission diagnosis: labor-term Hospital course: spontaneous labor, spontaneous vag delivery, nml postop/ postpart care Procedures: spontaneous vaginal deliv Discharge condition: stable Discharge to: Home/Self Care Discharge diagnosis: full-term uncomp delivery Discharge management: less than 30 mins Baby A: Vaginal delivery: spontaneous status: live born Gender: male 1 minute: 8 5 minutes: 9 Anomalies: none noted Nursing data: The data set between the solid lines has been im ported from nursing documentation. Any exceptions have been noted be low under Provider comments. Delivery date A: 06/14/20 Delivery time i nfant A: 0026 Birthweight (gm) infant A: 3300 Feeding preference: Gender infant A: Male 1 minute infant A: 8 5 minutes infant A: 9 10 minutes A: Provider comments on imported nursing data: [] Plan: routine care, discharge today Discharge Instructions Instructions: routine instr sheet given Diet: Regular Activity: As Tolerated Additional discharge routines: None Discharge meds: Stop taking the following medications: VENLAFAXINE (EFFEXOR) 25 MG TAB 25 MILLIGRAM ORAL THREE TIMES A DAY. Continue taking these medications: PNV WITH FE FUMARATE/FA () 1 EACH TAB 1 TABLET ORAL DAILY. OMEPRAZOLE DR (OMEPRAZOLE) 20 MG TAB.DR 20 MILLIGRAM ORAL DAILY. METOPROLOL SUCC XL (TOPROL XL) 25 MG TAB.SR.24H 12.5 MILLIGRAM ORAL DAILY. Start taking the following new medications: IBUPROFEN (MOTRIN) 800 MG TAB 800 MILLIGRAM ORAL EVERY 8 HR NEEDED. as nee ded for PAIN Qty = 30 No Refills Prescriptions: e-prescribe Electronically Signed by Soha Diego MD 06/15/20 at 0727 RPT #:[id number] END OF REPORT 2020-06-14 07:51:00-00:00 [facility] ([facility]) OB Postpart Progr Note REPORT#:[id number] REPORT STATUS: Signed DATE:06/14/20 TIME: 075 PATIENT: EMMA COYNE UNIT #: [id number] ROOM/BED: [address] : 93 AGE: 24 SEX: F ATTEND: Yesenia Zacarias MD ADM AUTHOR: Beatriz Zacarias MD * ALL edits or amendments must be made on the el ectronic/computer document * Subjective Subjective Admission EGA: Weeks: 38 Days: 4 EGA at delivery (wks/days): 38 weeks Status/day: post (day 0) Comments: Doing well this AM. Sore, but pain tolerable. Llanos s ambulated and voided. is going well. Objective Nursing Documentation Review Nursing data: The data set between the solid lines has been im ported from nursing documentation. Any exceptions have been noted be low under Provider comments. Feeding preference: Provider comments on imported nursing data: [] General VS: Vital Signs Date Temp Pulse Resp B/P B/P Mean Pulse Ox FiO2 06/13-06/14 98.0-98.6 51-119 16-20 86-145/47-88 63.0-108.0 100 Last Documented: Result Date Time B/P 114/62 06/14 0300 Temp 98.4 06/14 0300 Pulse 57 06/14 0300 Resp 20 06/14 0300 B/P Mean 85.0 06/14 0245 Pulse Ox 100 06/14 0024 PATIENT WEIGHT: Weight (lb): Weight (oz): Weight (kg): 89.407594 Physical Exam Lungs: unlabored breathing Neuro: Exam: alert, normal speech Abdomen: soft, no abnormal tenderness Uterus: firm Fundus: firm, below the umbilicus Lacerations: Perineal laceration(s): None High vaginal laceration: no Result Findings/data: Laboratory Tests: 06/13 06/13 1745 1733 Hematology WBC (6.6 - 12.1 K/mm3) 12.6 H RBC (3.45 - 5.01 M/mm3) 4.10 Hgb (10.7 - 13.9 g/dL) 11.7 Hct (32.1 - 42.1 %) 36.1 MCV (84.1 - 94.8 fL) 88 MCH (27 - 35 pg) 28.5 MCHC (32.2 - 34.1 gm/dL) 32.4 RDW (12.4 - 16.5 %) 13.1 Plt Count (133 - 385 K/mm3) 234 MPV (9.1 - 12.7 fl) 10.9 Neut % (Auto) (56.5 - 79.4 %) 78.4 Lymph % (Auto) (14.3 - 34.3 %) 14.2 L Baca % (Auto) (5.1 - 10.4 %) 6.4 Eos % (Auto) (0.1 - 3.0 %) 0.4 Baso % (Auto) (0.1 - 1.0 %) 0.2 Neut # (Auto) (K/mm3) 9.9 Lymph # (Auto) (K/mm3) 1.8 Baca # (Auto) (K/mm3) 0.8 Eos # (Auto) (K/mm3) 0.05 Baso # (Auto) (K/mm3) 0.0 Serology Treponema pallidum Ab (NONREACTIVE) NONREACTIVE Hep Bs Antigen (NONREACTIVE) NONREACTIVE Hepatitis C Antibody (NONREACTIVE) NONREACTIVE Hep C Ab Signal/Cutoff (<0.80) 0.07 HIV 1 2 Antibody (NONREACTIVE) NONREACTIVE SARS-CoV-2 Ag (Rapid) (NEGATIVE) NEGATIVE Diagnosis, Assessment Plan Diagnosis, Assessment Plan Problem List/A P: 1. 38 weeks gestation of Assessment: nml progress, breast feed ing w/o diff Plan: routine care, discharge tomorro w at 0752 RPT #:[id number] END OF REPORT 2020-06-14 00:41:00-00:00 [facility] ([facility]) OB Delivery Note REPORT#:[id number] REPORT STATUS: Signed DATE:06/14/20 TIME: 004 PATIENT: EMMA COYNE UNIT #: [id number] ROOM/BED: [address] : 93 AGE: 24 SEX: F ATTEND: Yesenia Zacarias MD ADM AUTHOR: Beatriz Zacarias MD * ALL edits or amendments must be made on the el ectronic/computer document * OB Delivery Nursing Documentation Review Nursing data: The data set between the solid lines has been im ported from nursing documentation. Any exceptions have been noted be low under Provider comments. _ ROM date: ROM time: Membranes rupture method: AROM Amniotic fluid color: Clear Amniotic fluid amount: Steroids prior to arrival: Antibiotic prophylaxis given: evaluation at delivery: Delivery date infant A: Delivery time infant A: Birthweight (gm) A: Weight (lb) infant A: Weight (oz) A: Gender A: Male 1 minute infant A: 5 minutes infant A: 10 minutes A: Cord pH obtained infant A: Vacuum time infant A: Vacuum # pulls A: Vacuum # popoffs infant A: QBL at delivery: __ Provider comments on imported nursing data: [] Pre-delivery GBS status: GBS status: negative evaluation at delivery: NRP certified pe rsonnel Admission EGA: Weeks: 38 Days: 4 EGA at delivery (wks/days): 38 weeks Baby A Information Baby A information Delivery date: 06/14/20 Delivery time: 25 status: live born Wt of baby: not yet available Gender: male 1 minute: 8 5 minutes: 9 Presentation: vertex Anomalies: none noted ABG details Baby A Cord blood gases: not collected Nuchal cord Baby A Nuchal cord: double nuchal cord and body cord x 1 Vaginal Delivery Vaginal delivery: Labor: augmented Medications/Devices used: oxytocin Vaginal delivery: spontaneous Amniotic fluid: clear Anesthesia type: epidural anesthesia Episiotomy: none Episiotomy repair: not applicable Laceration repair: not required Placenta: spontaneous, expressed, intact Post delivery meds used: oxytocin Count: correct Mother's condition: mother stable Infant's condition: infant stable in room Lacerations: Perineal laceration(s): None High vaginal laceration: no Extraction details OVD performed: no Shoulder dystocia present: no Blood Loss/Details Blood loss at delivery: <1000 ml, no more than e xpected EBL at delivery (ml's): 300 at 0044 RPT #:[id number] END OF REPORT 2020-06-13 22:13:00-00:00 [facility] ([facility]) OB Intrapart Prog Note REPORT#:[id number] REPORT STATUS: Signed DATE:06/13/20 TIME: 2212 PATIENT: EMMA COYNE UNIT #: [id number] ROOM/BED: [address] : 93 AGE: 24 SEX: F ATTEND: Beatriz Zacarias MD ADM AUTHOR: Beatriz Zacarias MD * ALL edits or amendments must be made on the el [employer]/computer document * Subjective Subjective Admission EGA (wks/days): 38 weeks Comments: Comfortable s/p epidural Objective Nursing Documentation Review Nursing data: The data set between the solid lines has been im ported from nursing documentation. Any exceptions have been noted be low under Provider comments. __ ROM date: ROM time: __ Provider comments on imported nursing data: [] General VS: Last Documented: Result Date Time B/P Mean 90.0 06/13 2159 B/P 123/71 06/13 215 Pulse 75 06/13 215 Temp 98.6 06/13 1910 Resp 16 06/13 191 Vital Signs Date Temp Pulse Resp B/P B/P Mean Pulse Ox FiO2 06/13 98.6 59-90 16 117-136/68-88 90.0-104.0 PATIENT WEIGHT: Weight (lb): Weight (oz): Weight (kg): 89.724424 Objective Cervical/ exam: Dilatation (cm): 5/50/-2, AROM copious clear fl uid Pelvis exam: Clinically adequate for this fetus: yes Uterine activity: Monitor: toco Frequency (description): regular (q 3-4 min) FHR Evaluation Baby A: Baby A baseline: 130 bpm Baby A variability: moderate 6-25 bpm Baby A accelerations: 15 X 15 Baby A decelerations: none Baby A FHR category: category 1 Result Findings/Data: Laboratory Tests: 06/13 06/13 1745 1733 Hematology WBC (6.6 - 12.1 K/mm3) 12.6 H RBC (3.45 - 5.01 M/mm3) 4.10 Hgb (10.7 - 13.9 g/dL) 11.7 Hct (32.1 - 42.1 %) 36.1 MCV (84.1 - 94.8 fL) 88 MCH (27 - 35 pg) 28.5 MCHC (32.2 - 34.1 gm/dL) 32.4 RDW (12.4 - 16.5 %) 13.1 Plt Count (133 - 385 K/mm3) 234 MPV (9.1 - 12.7 fl) 10.9 Neut % (Auto) (56.5 - 79.4 %) 78.4 Lymph % (Auto) (14.3 - 34.3 %) 14.2 L [place] % (Auto) (5.1 - 10.4 %) 6.4 Eos % (Auto) (0.1 - 3.0 %) 0.4 Baso % (Auto) (0.1 - 1.0 %) 0.2 Neut # (Auto) (K/mm3) 9.9 Lymph # (Auto) (K/mm3) 1.8 [place]aca # (Auto) (K/mm3) 0.8 Eos # (Auto) (K/mm3) 0.05 Baso # (Auto) (K/mm3) 0.0 Serology Treponema pallidum Ab (NONREACTIVE) NONREACTIVE Hep Bs Antigen (NONREACTIVE) NONREACTIVE Hepatitis C Antibody (NONREACTIVE) NONREACTIVE Hep C Ab Signal/Cutoff (<0.80) 0.07 HIV 1 2 Antibody (NONREACTIVE) NONREACTIVE SARS-CoV-2 Ag (Rapid) (NEGATIVE) NEGATIVE Diagnosis, Assessment Plan Problem List/A P: 1. 38 weeks gestation of Assessment: normal FHR pattern, normal progress of labor, stable, doing well Plan: anticipate vag delivery, epidural anesthes ia, continue oxytocin at 2215 RPT #:[id number] END OF REPORT 2020-06-13 18:08:00-00:00 [facility] ([facility]) DT History Physical REPORT#:[id number] REPORT STATUS: Signed DATE:06/13/20 TIME: 1808 PATIENT: EMMA COYNE UNIT #: [id number] ROOM/BED: [facility] : 93 AGE: 24 SEX: F ATTEND: Yesenia Zacarias MD ADM AUTHOR: Beatriz Zacarias MD * ALL edits or amendments must be made on the el [employer]/computer document * History Physical History Physical CC: contractions HPI: 24 year old @ 3 8 weeks here for contractions. Patient has a history of rapid labor with her last child. She has been roseline every 5-6 minutes for the last 2 hours. PERSONAL INFO: LABS: Blood type/ AB screen: A positive / negative CBC: 13.8/42.5 < 270 Rubella: Immune 1.44 HIV: NR HepBsAg Neg RPR: NR Urine culture: Neg Pap:11/07/19 NILM GC/CT/Trich:Neg MSaFP: negative Genetic testing: NIPT negative, its a boy! Carrier screening: negative Hgb Electro: negative Anatomy U/S: Dr. Mosquera 02/04/20 EFW 62%ile norm al anatomy and screening echo due to maternal afib, variable presentation and anterior placenta Growth US (06/02): vertex EFW 76%ile 3318g 2nd trimester labs: CBC: 12.2 / 36.0 < 218 1hr GTT: 67 3rd trimester CBC: 11.7 / 35.0 < 231 3rd trimester RPR: NR 3rd trimester HIV: negative GBS: negative OB CHECKLIST: Zika precautions- discussed [employer] [employer]ist: near home, Dr. Hayden in the hospit al feeding: breastfed first for 6 weeks, sec ond she stopped after the hospital due to problems with latching. Desires to try again - consult in hospital Pain management: desires unmedicated (did with her daughter) PN Class: discussed PP Depression: discussed in detail PP Contraception: desires PP BTL if , v asectomy otherwise Dietary counseling: discussed Flu vaccine: 04/11/20 Tdap vaccine: 04/24/20 [place]: discussed Blood products: accepts Circumcision:desires Cord Blood: discussed Pelvis clinically adequate: yes EFW under 5000 gm: yes OB history: G1. 2012 M 7lb 16oz epidural, preeclampsia G2. 2014 F 7lb 16oz no epidural, precipito us labor G3. current Past medical history: symptomatic palpitations, depression / anxiety, endometriosis Past surgical history: laparoscopy (2019) Allergies: NKDA Meds: PNV Objective BP 138/79 HR 93 T 98.2 Gen NAD Abdomen soft gravid NT SVE 3/60/-3 per RN Ext no edema FHTs 140s / moderate variability / positive acce ls / no decels [place] ctx q 3-4 min A/P: 24 year old @ 38 weeks here for early labor with history of rapid labor progression 1. Labor: discussed with patient options , recommend admission for augmentation given regular painful contra ctions and history of rapid labor (patient lives 45 minutes from the hospital), agreed, will admit a nd augment with pitocin 2x2 2. SIUP @ 38 weeks: FHTs cat I 3. GBS negative 4. Pain: epidural on request 5. Rh positive, rubella immune, its a boy! (yolanda res circumcision) at 1930 RPT #:[id number] END OF REPORT 2020-04-29 12:39:00-00:00 [facility] ([facility]) DT History Physical REPORT#:[id number] REPORT STATUS: Signed DATE:04/29/20 TIME: 1239 PATIENT: EMMA COYNE UNIT #: [id number] ROOM/BED: : 93 AGE: 24 SEX: F ATTEND: Yesenia Zacarias MD ADM DT: AUTHOR: Beatriz Zacarias MD * ALL edits or amendments must be made on the [employer]/computer document * History Physical History Physical CC: nausea, vomiting, heartburn HPI: 24 year old @ 3 2 weeks here for complaint of nausea / vomiting and heartburn for the last 3 days. She reports inter mittent vomiting over the weekend, minimal fluid intake and only eating to ast. Non-bloody/ non-bilious emesis. Denies any fevers/ chills. She e ndorses significant hearburn requiring frequent dosing of Tums associated but no relief . Also reports worsening constipation, her baseline i s q 2-3 days and recently has increased to every 4-5 days. Today, reports headach e and dizziness on ambulation, prompting her to call the office, routed to [facility] fo r evaluation. Took tylenol and drank two bottles of water en route and reports dizziness and LLANOS impr olvin with these interventions OB history: , x 2 Past medical history: endometriosis, atr ial fibrillation, depression / anxiety Past surgical history: laparoscopy 2019 Allergies NKDA Meds: PNV Objective: BP 131/72 HR 97 Temp 98.2 F Gen NAD Abdomen soft gravid NT, mild epigastric TTP no r ebound/ guarding, negative murphys sign Ext no edema FHTs 130s / moderate variability / positive acce ls no decels [place] no ctx NST > 30 minutes reviewed by me LABS Laboratory Tests 04/29 1240 Chemistry Sodium (135 - 145 mEq/L) 136 Potassium (3.5 - 5.0 mEq/L) 4.8 Chloride (100 - 115 mEq/L) 103 Carbon Dioxide (22 - 31 mEq/L) 27 Anion Gap (10 - 20) 11.00 BUN (7 - 18 mg/dL) 7 Creatinine (0.5 - 1.0 mg/dL) 0.5 Glomerular Filtr Rate (>60 ml/min) 149 Glucose (65 - 110 mg/dL) 99 Calcium (8.4 - 10.2 mg/dL) 8.8 Total Bilirubin (0.2 - 1.0 mg/dL) 0.4 AST (15 - 37 units/L) 47 H ALT (12 - 78 units/L) 15 Total Alk Phosphatase (46 - 116 units/L) 97 Total Protein (6.3 - 8.2 gm/dL) 6.1 L Albumin (3.4 - 4.8 gm/dL) 2.6 L Amylase (30 - 110 units/L) 51 Lipase (73 - 393 units/L) 136 Laboratory Tests 04/29 1240 Hematology WBC (6.6 - 12.1 K/mm3) 9.4 RBC (3.45 - 5.01 M/mm3) 3.80 Hgb (10.7 - 13.9 g/dL) 11.7 Hct (32.1 - 42.1 %) 35.3 MCV (84.1 - 94.8 fL) 93 MCH (27 - 35 pg) 30.8 MCHC (32.2 - 34.1 gm/dL) 33.1 RDW (12.4 - 16.5 %) 12.5 Plt Count (133 - 385 K/mm3) 223 MPV (9.1 - 12.7 fl) 10.7 Neut % (Auto) (56.5 - 79.4 %) 76.4 Lymph % (Auto) (14.3 - 34.3 %) 15.2 [place]aca % (Auto) (5.1 - 10.4 %) 7.3 Eos % (Auto) (0.1 - 3.0 %) 0.6 Baso % (Auto) (0.1 - 1.0 %) 0.2 Neut # (Auto) (K/mm3) 7.2 Lymph # (Auto) (K/mm3) 1.4 [place] # (Auto) (K/mm3) 0.7 Eos # (Auto) (K/mm3) 0.06 Baso # (Auto) (K/mm3) 0.0 Assessment: poorly controlled heartburn, dehydra tion Plan: Symptoms improved after IVF bolus, reglan and maalox. Rx Reglan and omeprazole, discussed importance of IVF hydration and bowel regimen. ER return precautions reviewed at 1502 RPT #:[id number] END OF REPORT 2020-03-31 22:00:00-00:00 [facility] ([facility]) OB Triage Visit REPORT#:[id number] REPORT STATUS: Signed DATE:03/31/20 TIME: 2199 PATIENT: EMMA COYNE UNIT #: [id number] ROOM/BED: : 93 AGE: 24 SEX: F ATTEND: Yesenia Zacarias MD ADM DT: AUTHOR: Irma Forrest MD * ALL edits or amendments must be made on the el [employer]/computer document * History Chief complaint HPI: Emma is a 34 y/o @28w0d coming in 24h after intercourse. She says she has had bleeding that starte d this PM and went through 3 panties with moisture. She says she has had lower abd pressure and pain that is worse with standing. Does not think it is contractions, no dysuria/UT I sx. Has not had it before with other babies. history: : 3 Term: 2 : 0 Abortus: 0 Living children: 2 Previous : none Current Current : EDC: 06/23/20 EGA (weeks/days): 28w0d Past history Past medical history: A fib, bipolar/anxiety Past surgical history: Laparoscopy for endometri osis Social history: no alcohol use, no tobacco use, no drug use Medications: Prenatals Allergies Coded Allergies: No Known Allergies (03/31/20) Objective General VS: Patient Weight Weight (lb): Weight (oz): Weight (kg): 79.347323 131/69 Physical Exam: Cervix: SSE: no blood, no fluid with valslva, no cough. Uterus: normal Cervical/ exam: Dilatation (cm): 0 - closed Effacement (%): 0 station: - 5 (very anterior) FHR evaluation: Baseline: 145 bpm Variability: moderate 6-25 bpm Accelerations: 15 X 15 Decelerations: none Uterine activity: Monitor: toco Frequency (description): none Diagnosis, Assessment Plan Diagnosis, Assessment Plan Free text A P: 24 y/o @28w0d with pelvic floor spasm -no bleeding noted, likely postcoital -rec birthing ball, possible massage or yoga -precautions reviewed at 2212 RPT #:[id number] END OF REPORT 2020-03-31 22:00:00-00:00 [facility] ([facility]) OB Triage Visit REPORT#:[id number] REPORT STATUS: Signed DATE:03/31/20 TIME: 2199 PATIENT: EMMA COYNE UNIT #: [id number] ROOM/BED: : 93 AGE: 24 SEX: F ATTEND: Yesenia Zacarias MD ADM DT: AUTHOR: Irma Forrest MD * ALL edits or amendments must be made on the el [employer]/computer document * See Addendum History Chief complaint HPI: Emma is a 34 y/o @28w0d coming in 24h after intercourse. She says she has had bleeding that starte d this PM and went through 3 panties with moisture. She says she has had lower abd pressure and pain that is worse with standing. Does not think it is contractions, no dysuria/UT I sx. Has not had it before with other babies. history: : 3 Term: 2 : 0 Abortus: 0 Living children: 2 Previous : none Current Current : EDC: 06/23/20 EGA (weeks/days): 28w0d Past history Past medical history: A fib, bipolar/anxiety Past surgical history: Laparoscopy for endometri osis Social history: no alcohol use, no tobacco use, no drug use Medications: Prenatals Allergies Coded Allergies: No Known Allergies (03/31/20) Objective General VS: Patient Weight Weight (lb): Weight (oz): Weight (kg): 79.273802 131/69 Physical Exam: Cervix: SSE: no blood, no fluid with valslva, no cough. Uterus: normal Cervical/ exam: Dilatation (cm): 0 - closed Effacement (%): 0 station: - 5 (very anterior) FHR evaluation: Baseline: 145 bpm Variability: moderate 6-25 bpm Accelerations: 15 X 15 Decelerations: none Uterine activity: Monitor: toco Frequency (description): none Diagnosis, Assessment Plan Diagnosis, Assessment Plan Free text A P: 24 y/o @28w0d with pelvic floor spasm -no bleeding noted, likely postcoital -rec birthing ball, possible massage or yoga -precautions reviewed at 2212 Addendum 1: 03/31/20 221 by Irma Forrest MD Pt also complained of swollen vagina today that has resolved. at 2219 RPT #:[id number] END OF REPORT
[2022-11-30] MEDS ORDERED: NA CHLORIDE 0.9% 1,000 ML ONE (12:59)
[2022-11-30 13:16] LABS: Hematocrit 38.9 % (36.0-45.0); Lymphocytes % 22.7 % (15.3-44.8); MCV 92.7 fL (80-100); MPV 7.8 fL (7.6-11.3)
[2022-11-30 13:17] LABS: Specific Gravity 1.005 (1.005-1.030); Urine Bilirubin NEGATIVE (Negative); Urine Blood Negative (Negative); Urine Clarity Clear (Clear); Urine Color Colorless (Yellow); Urine Glucose NEGATIVE (Negative); Urine Protein NEGATIVE (Negative); Urine Urobilinogen Normal (Normal)
--- NOTE | 2022-11-30 13:21 | RAD REPORT ---
EXAM DESCRIPTION: Lori Single View11/30/2022 12:46 pm CLINICAL HISTORY: cough COMPARISON: none FINDINGS: The lungs appear clear of acute infiltrate. The heart is normal size IMPRESSION: No acute abnormalities displayed
[2022-11-30 13:23] LABS: Protime INR 0.92
[2022-11-30 13:25] LABS: Barbiturates NEGATIVE (NEGATIVE); Benzodiazepines NEGATIVE (NEGATIVE); Cocaine NEGATIVE (NEGATIVE); METHAMPHETAM NEGATIVE (NEGATIVE); Methadone NEGATIVE (NEGATIVE); Opiates NEGATIVE (NEGATIVE); Phencyclidine NEGATIVE (NEGATIVE); THC Cannibis NEGATIVE (NEGATIVE)
[2022-11-30 13:42] LABS: ALT/SGPT 31 U/L (13-56); AST/SGOT 15 U/L (15-37); Albumin 3.6 g/dL (3.4-5.0); Alkaline Phosphatase 96 U/L (45-117); BUN Blood Urea Nitrogen 6 mg/dL (7-18); Bicarbonate 24 mEq/L (21-32); Bilirubin Total 0.2 mg/dL (0.2-1.0); Glomerular Filtration Rate 121 ml/min (=/>90); Glucose Level 102 mg/dL (74-106); Lipase 52 U/L (13-75); Magnesium 1.8 mg/dL (1.6-2.4); NT PRO-BNP 62 pg/mL (<125); Potassium 3.7 mEq/L (3.5-5.1); Sodium Level 141 mEq/L (136-145); Troponin High Sensitivity 9.3 pg/mL (<58.9)
[2022-11-30 13:43] LABS: Bilirubin Direct < 0.1 mg/dL (0-0.2); Bilirubin Indirect, Calculated ND mg/dL (0.2-0.8)
--- NOTE | 2022-11-30 14:38 | RAD REPORT ---
EXAM DESCRIPTION: CT - Chest For Pe Angio - 11/30/2022 2:15 pm CLINICAL HISTORY: Chest pain COMPARISON: None. TECHNIQUE: Dynamically enhanced axial 3 mm thick images of the chest were obtained during administra tion of 100 mL Isovue 370 IV contrast. Coronal and oblique reconstruction images were generated and r eviewed. Exam utilizes a protocol for optimal evaluation of pulmonary arterial tree. Maximum intensity projections 3D imaging was utilized All CT scans are performed using dose optimization technique as appropriate and may include automated exposure control or mA/KV adjustment according to patient size. FINDINGS: The opacification of the pulmonary arteries is suboptimal. No gross central pulmonary embo saúl seen A thoracic aortic aneurysm is not noted. A pleural effusion is not seen. A pericardial effusion is not seen. A lung consolidation is not present. IMPRESSION: No gross central pulmonary embolus seen
--- NOTE | 2022-11-30 15:18 | RAD REPORT ---
EXAM DESCRIPTION: USExtrem Venous W Compress Bil11/30/2022 2:44 pm CLINICAL HISTORY: Leg pain COMPARISON: none FINDINGS: The common femoral, superficial femoral, greater saphenous, popliteal and posterior tibial veins bilaterally are compressible and demonstrate augmentation. Doppler demonstrates good flow. Grayscale, color and spectral analysis performed on all vessels IMPRESSION: No evidence of deep venous thrombosis involving either lower extremity.
--- NOTE | 2022-11-30 15:27 | ER ---
Nurse's Notes [facility] Name: Emma Velarde Age: 27 yrs Sex: Female : 1995 Arrival Date: 11/30/2022 Time: 12:22 Bed 18 Private MD: Diagnosis: Palpitations;Chest pain, unspecified;Adverse effect of other drugs, medicaments and biological substances Presentation: 11/30 12:23 Chief complaint: Patient states: "I started a new medication this morning and my aa5 resting heart rate has been 150". Pt reports SOB. 12:23 Coronavirus screen: At this time, the client does not indicate any symptoms associated aa5 with coronavirus-19. Ebola Screen: Patient denies travel to an Ebola-affected area in the 21 days before illness onset. Initial Sepsis Screen: Does the patient meet any 2 criteria? HR > 90 bpm. Does the patient have a suspected source of infection? No. Patient's initial sepsis screen is negative. Risk Assessment: Do you want to hurt yourself or someone else? Patient reports no desire to harm self or others. Onset of symptoms was November 30, 2022. 12:23 Acuity: JES 3 aa5 12:23 Method Of Arrival: Ambulatory aa5 Triage Assessment: 15:54 General: Appears in no apparent distress. Respiratory: Reports. db 15:55 General: Behavior is calm, cooperative. 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 - Social history:: Smoking status: Patient denies any tobacco usage or history of. Screenin:14 [facility] ED Fall Risk Assessment (Adult) History of falling in the last 3 months, db including since admission No falls in past 3 months (0 pts) Confusion or Disorientation No (0 pts) Intoxicated or Sedated No (0 pts) Impaired Gait No (0 pts) Mobility Assist Device Used No (0 pt) Altered Elimination No (0 pt) Score/Fall Risk Level 0 - 2 = Low Risk Oriented to surroundings, Maintained a safe environment. Abuse screen: Denies threats or abuse. Denies injuries from another. Nutritional screening: No deficits noted. Tuberculosis screening: No symptoms or risk factors identified. Assessment: 13:00 Reassessment: Patient appears in no apparent distress at this time. Patient and/or db family updated on plan of care and expected duration. Pain level reassessed. Patient is alert, oriented x 3, equal unlabored respirations, skin warm/dry/pink. General: Appears in no apparent distress. comfortable, Behavior is calm, cooperative. Pain: Complains of pain in chest. Neuro: Level of Consciousness is awake, alert, obeys commands, Oriented to person, place, time, situation. Cardiovascular: Rhythm is regular. Respiratory: Airway is patent Respiratory effort is even, unlabored, Respiratory pattern is regular, symmetrical, Breath sounds are clear. GI: Abdomen is flat. 14:49 Reassessment: Patient appears in no apparent distress at this time. patient returned to db room from radiology. 15:54 Reassessment: Patient appears in no apparent distress at this time. Patient and/or db family updated on plan of care and expected duration. Pain level reassessed. Patient is alert, oriented x 3, equal unlabored respirations, skin warm/dry/pink. Patient states feeling better. Patient states symptoms have improved. Vital Signs: 12:23 BP 133 / 86; Pulse 111; Resp 14 S; Temp 98(TE); Pulse Ox 96% on R/A; Weight 86.18 kg aa5 (R); Height 5 ft. 4 in. (R); 13:00 BP 112 / 61; Pulse 80; Resp 17; Pulse Ox 100% on R/A; db 15:54 BP 104 / 46; Pulse 73; Resp 16; Pulse Ox 100% on R/A; db 12:23 Body Mass Index 32.61 (86.18 kg, 162.56 cm) aa5 ED Course: 12:23 [facility] 12:23 Tyson Selby MD is Attending Physician. [facility] 12:23 Arm band placed on Patient placed in an exam room, on a stretcher. aa5 12:35 Triage completed. aa5 12:48 XRAY Chest (1 view) In Process Unspecified. EDMS 12:56 Oly Chapman, EV is Primary Nurse. 13:05 Inserted saline lock: 20 gauge in right antecubital area, using aseptic technique. db Blood collected. 14:17 CT Chest For PE Angio In Process Unspecified. EDMS 14:46 US Extremity Venous W Compression Johny In Process Unspecified. EDMS 15:26 Darrel Adhikari MD is Referral Physician. [facility] 15:54 Patient has correct armband on for positive identification. Side rails up X 1. db 15:54 No provider procedures requiring assistance completed. IV discontinued, intact, db bleeding controlled, No redness/swelling at site. Administered Medications: 13:10 Drug: NS 0.9% IV 1000 ml Route: IV; Rate: 1 bolus; Site: right antecubital; db 15:54 Follow up: Response: No adverse reaction; IV Status: Completed infusion; IV Intake: db 1000ml 15:49 Drug: Aspirin PO Chewable Tablet 162 mg Route: PO; aa5 15:53 Follow up: Response: No adverse reaction db Medication: 13:00 VIS not applicable for this client. db Intake: 15:54 IV: 1000ml; Total: 1000ml. db Outcome: 15:27 Discharge ordered by . [facility] 15:54 Discharged to home ambulatory. db 15:54 Condition: stable 15:54 Discharge instructions given to patient, Instructed on discharge instructions, follow up and referral plans. 15:55 Patient left the ED. db Signatures: Dispatcher [employer] Tyson Marshall MD MD cha Calderon, Audri, RN RN aa5 Oly Chapman, RN RN db
--- NOTE | 2022-11-30 15:27 | EDPHYS ---
Physician Documentation [facility] Name: Emma Velarde Age: 27 yrs Sex: Female : 1995 Arrival Date: 11/30/2022 Time: 12:22 Bed 18 Private MD: ED Physician Tyson Selby HPI: 11/30 15:16 This 27 yrs old Female presents to ER via Ambulatory with complaints of william Shortness Of Breath, High Heart Rate. 15:16 The patient has shortness of breath at rest, with light activity. Onset: The william symptoms/episode began/occurred this morning. 15:18 Duration: The symptoms are continuous, but are markedly better than the original william presentation. The patient's shortness of breath has no apparent modifying factors. Associated signs and symptoms: Pertinent positives: chest pain. Severity of symptoms: At their worst the symptoms were mild in the emergency department the symptoms are unchanged. The patient has experienced similar episodes in the past, several times. 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 - Social history:: Smoking status: Patient denies any tobacco usage or history of. ROS: 15:18 Constitutional: Negative for fever, chills, and weight loss, Eyes: Negative for injury, william pain, redness, and discharge, ENT: Negative for injury, pain, and discharge, Neck: Negative for injury, pain, and swelling, Respiratory: Negative for shortness of breath, cough, wheezing, and pleuritic chest pain, Abdomen/GI: Negative for abdominal pain, nausea, vomiting, diarrhea, and constipation, Back: Negative for injury and pain, : Negative for injury, bleeding, discharge, and swelling, MS/Extremity: Negative for injury and deformity, Skin: Negative for injury, rash, and discoloration, Neuro: Negative for headache, weakness, numbness, tingling, and seizure, Psych: Negative for depression, anxiety, suicide ideation, homicidal ideation, and hallucinations, Allergy/Immunology: Negative for hives, rash, and allergies, Endocrine: Negative for neck swelling, polydipsia, polyuria, polyphagia, and marked weight changes, Hematologic/Lymphatic: Negative for swollen nodes, abnormal bleeding, and unusual bruising. 15:18 Cardiovascular: Positive for chest pain, palpitations. Exam: 15:18 Constitutional: This is a well developed, well nourished patient who is awake, alert, william and in no acute distress. Head/Face: Normocephalic, atraumatic. Eyes: Pupils equal round and reactive to light, extra-ocular motions intact. Lids and lashes normal. Conjunctiva and sclera are non-icteric and not injected. Cornea within normal limits. Periorbital areas with no swelling, redness, or edema. ENT: Nares patent. No nasal discharge, no septal abnormalities noted. Tympanic membranes are normal and external auditory canals are clear. Oropharynx with no redness, swelling, or masses, exudates, or evidence of obstruction, uvula midline. Mucous membranes moist. Neck: Trachea midline, no thyromegaly or masses palpated, and no cervical lymphadenopathy. Supple, full range of motion without nuchal rigidity, or vertebral point tenderness. No Meningismus. Chest/axilla: Normal chest wall appearance and motion. Nontender with no deformity. No lesions are appreciated. Cardiovascular: Regular rate and rhythm with a normal S1 and S2. No gallops, murmurs, or rubs. Normal PMI, no JVD. No pulse deficits. Abdomen/GI: Soft, non-tender, with normal bowel sounds. No distension or tympany. No guarding or rebound. No evidence of tenderness throughout. Back: No spinal tenderness. No costovertebral tenderness. Full range of motion. Skin: Warm, dry with normal turgor. Normal color with no rashes, no lesions, and no evidence of cellulitis. MS/ Extremity: Pulses equal, no cyanosis. Neurovascular intact. Full, normal range of motion. Neuro: Awake and alert, GCS 15, oriented to person, place, time, and situation. Cranial nerves II-XII grossly intact. Motor strength 5/5 in all extremities. Sensory grossly intact. Cerebellar exam normal. Normal gait. Psych: Awake, alert, with orientation to person, place and time. Behavior, mood, and affect are within normal limits. 15:18 ECG was reviewed by the Attending Physician. 15:18 Respiratory: Exam negative for acute changes, Breath sounds: are clear throughout, no bronchial sounds, no decreased breath sounds, no rales, rhonchi, no stridor, no wheezing, Respiratory rate: 16 Vital Signs: 12:23 BP 133 / 86; Pulse 111; Resp 14 S; Temp 98(TE); Pulse Ox 96% on R/A; Weight 86.18 kg aa5 (R); Height 5 ft. 4 in. (R); 13:00 BP 112 / 61; Pulse 80; Resp 17; Pulse Ox 100% on R/A; db 15:54 BP 104 / 46; Pulse 73; Resp 16; Pulse Ox 100% on R/A; db 12:23 Body Mass Index 32.61 (86.18 kg, 162.56 cm) aa5 MDM: 12:23 Patient medically screened. [facility] 15:21 Differential diagnosis: Anemia Anxiety Reaction CHF exacerbation, Chronic Obstructive william Pulmonary Disease abnormal EKG, acute myocardial infarction, acute pericarditis, anxiety, cholecystitis, Cholelithiasis esophagitis, herpes zoster, pancreatitis, pleurisy, pneumonia, pulmonary embolus, stable angina, unstable angina, pneumonia, pulmonary edema, Pulmonary Embolism reactive airway disease, Unstable Angina. Antibiotic administration: Not indicated. HEART Score: History: Slightly Suspicious (0), ECG: Normal (0), Age: < or = 45 years (0), Risk Factors: No Risk Factors Known (0), Troponin: < or = 1 x Normal Limit (0), Total Score = 0. PRECIOUS Risk Score: TOTAL SCORE = 0. Immunization status:. Data reviewed: vital signs, nurses notes, lab test result(s), EKG, radiologic studies, CT scan, doppler, plain films. Consideration of Admission/Observation Escalation of care including admission/observation considered. Test considered but Not performed: MRI: no mri chest. Care significantly affected by the following chronic conditions: anxiety, depression, bipolar, insomnia. 15:24 Counseling: I had a detailed discussion with the patient and/or guardian regarding: the [facility] historical points, exam findings, and any diagnostic results supporting the discharge/admit diagnosis, lab results, radiology results, the need for outpatient follow up, for definitive care, a senior software quality analyst, a family practitioner. 11/30 12:25 Order name: Basic Metabolic Panel; Complete Time: 13:56 [facility] 11/30 12:25 Order name: CBC with Diff; Complete Time: 13:56 11/30 12:25 Order name: LFT's; Complete Time: 13:56 11/30 12:25 Order name: Magnesium; Complete Time: 13:56 11/30 12:25 Order name: NT PRO-BNP; Complete Time: 13:56 11/30 12:25 Order name: PT-INR; Complete Time: 13:56 11/30 12:25 Order name: Troponin HS; Complete Time: 13:56 11/30 12:25 Order name: UDS; Complete Time: 13:56 11/30 12:25 Order name: TSH; Complete Time: 13:56 11/30 12:25 Order name: D-Dimer; Complete Time: 13:56 11/30 12:25 Order name: Lipase; Complete Time: 13:56 11/30 12:25 Order name: Urinalysis w/ reflexes; Complete Time: 13:56 11/30 12:25 Order name: PREGU; Complete Time: 13:56 11/30 12:25 Order name: XRAY Chest (1 view); Complete Time: 13:56 11/30 13:57 Order name: CT Chest For PE Angio; Complete Time: 15:09 11/30 13:57 Order name: US Extremity Venous W Compression Johny 11/30 12:25 Order name: EKG; Complete Time: 12:26 11/30 12:25 Order name: Cardiac monitoring; Complete Time: 12:31 11/30 12:25 Order name: EKG - Nurse/Tech; Complete Time: 12:31 11/30 12:25 Order name: IV Saline Lock; Complete Time: 13:12 11/30 12:25 Order name: Labs collected and sent; Complete Time: 13:12 11/30 12:25 Order name: O2 Per Protocol; Complete Time: 12:31 11/30 12:25 Order name: O2 Sat Monitoring; Complete Time: 12:31 [facility] EC:18 Rate is 97 beats/min. Rhythm is regular. QRS [place] is Normal. MT interval is normal. QRS william interval is normal. QT interval is normal. No Q waves. T waves are Normal. No ST changes noted. Clinical impression: Normal ECG and No evidence of ischemia. Interpreted by me. Reviewed by me. Administered Medications: 13:10 Drug: NS 0.9% IV 1000 ml Route: IV; Rate: 1 bolus; Site: right antecubital; db 15:54 Follow up: Response: No adverse reaction; IV Status: Completed infusion; IV Intake: db 1000ml 15:49 Drug: Aspirin PO Chewable Tablet 162 mg Route: PO; aa5 15:53 Follow up: Response: No adverse reaction db Disposition Summary: 11/30/22 15:27 Discharge Ordered Location: Home william Problem: new william Symptoms: have improved william Condition: Stable william Diagnosis - Palpitations william - Chest pain, unspecified william - Adverse effect of other drugs, medicaments and biological substances william Followup: william - With: Private Physician - When: 2 - 3 days - Reason: Recheck today's complaints, Re-evaluation by your physician Followup: william - With: Darrel Adhikari MD - When: 2 - 3 days - Reason: Recheck today's complaints, Re-evaluation by your physician Discharge Instructions: - Discharge Summary Sheet william - Nonspecific Chest Pain, Adult william - Palpitations william - Nonspecific Chest Pain, Adult, [id number] william - Aspirin and Your Heart william - Palpitations, [id number] william Forms: - Medication Reconciliation Form william - Thank You Letter william - Antibiotic Education william - Prescription Opioid Use william - Work release form aa5 Signatures: Dispatcher [employer] Tyson Marshall MD MD cha Calderon, Audri, RN RN aa5 Oly Chapman RN RN db
[2022-11-30] MEDS ORDERED: ASPIRIN 81 MG CHEWABLE TABLET ONE (15:55)
[2022-11-30 16:01] VITALS: O2SAT 100
[2022-11-30 16:09] VITALS: TEMP 97.7
[2022-11-30 16:10] VITALS: BP 145/74
--- NOTE | 2022-12-01 19:12 | EKG ---
Test Date: 2022-11-30 Test Time: 12:24:18 Account Manager Sales Representative: BIANKA MEASUREMENT RESULTS: Intervals: Rate: 97 DE: 148 QRSD: 76 QT: 348 QTc: 441 [place]: P: 73 DE: 148 QRS: 81 T: 7 INTERPRETIVE STATEMENTS: Normal sinus rhythm Nonspecific T wave abnormality Abnormal ECG No previous ECG available for comparison Electronically Signed On 12-01-22 19:09:40 CDT by Darrel Adhikari
== END 2022-11-30 15:55 | disposition home or self-care (01) ==
LOC: ER 12:22
DX: R00.2 Palpitations (principal); T50.995A Adverse effect of other drugs, medicaments and biological substances, initial encounter
CPT/HCPCS: 85025; 80048; 36415; 83735; 81025; 85610; 85379; 80076; 84443; 81003; 84484; 83690; 83880; 80307; 71275; 71045; 93970; Q9967; J7030; 93005

== ENCOUNTER 2024-02-06 02:14 | Emergency (ER) | payer BC, OTHER ==
--- OUTSIDE RECORDS SUMMARY | 2024-02-06 02:18 | XMS REPORT | Continuity of Care Document ---
Author Name Unknown Address [address] [place] [id number] [facility] thconnect Address [address] [place] [address] Care Team Providers Care Vrt Mechanic Name Role Phone JEN MORIN Primary Care Physician Beatriz Figueroa Attending Clinician Unavailab RACHEL Craft Attending Clinician Unava iljuan VELÁZQUEZ_GCBZW_Francesco_S Attending Clinician John perez Doctor Unassigned, [place] Attending Clinician Nasreen Menjivar MD Attending Clinician [phone] GENARO CALDERON Attending Clinician Unavailable Susanna Tian NP Attending Clinician + [phone] SUSANNA TIAN Attending Clinician UnavailEileen Walton Attending Clinician Unavailable Vandana Li Attending Clinician Unavailabl e Unknown, Attending Attending Clinician UnavailDeidra Monk MD Attending Clinician [phone] DEIDRA RAMIREZ Attending Clinician Unavailable Beatriz Zacarias Admitting Clinician Unavailab altagracia VELÁZQUEZ_GCBZW_Jannaa_S Admitting Clinician UnavailEileen Walton Admitting Clinician Unavailable Physician, No Primary or Family Admitting Clinic yevgeniy Unavailable Payers Payer Name Policy Type Policy Number Effective Date Expirati on Date Source [employer] - [facility] - CHOICE PLUS (PPO) [id number] 2019 00:00:00 Problems Condition Name Condition Details Condition Category Status Onset Date Resolution Date Last Treatment Date Treating Clinician Comments Source History of ovarian cyst History of ovarian cyst Disease Active 2021-06 00:00: 00 [facility] Pain pelvic Pain pelvic Disease Active 2021-06 00:00: 00 [facility] Well woman exam with routine gynecologi dorcas exam Well woman exam with routine gynecologi dorcas exam Disease Active 2021-06 00:00: 00 [facility] Insomnia Insomnia Disease Active 12-10 00:00: 00 [facility] ADHD ADHD Disease Active 12-10 00:00: 00 [facility] Bipolar 1 disorder, depressed, severe Bipolar 1 disorder, depressed, severe Disease Active 12-10 00:00: 00 [facility] History of hysterecto my History of hysterecto my Disease Active 11-29 00:00: 00 [facility] Endometrio sis Endometrio sis Disease Active 12-10 00:00: 00 [facility] Depression Depression Disease Active 12-10 00:00: 00 [facility] Anxiety Anxiety Disease Active 12-10 00:00: 00 [facility] No known active problems No known active problems Disease [facility] Allergies, Adverse Reactions, Alerts Allergy Name Allergy Type Status Severity Reaction(s) Onset Date Inactive Date Treating Clinician Comments Source No Known Allergie s DA Active U 12-30 00:00: 00 [facility] No Known Allergie s DA Active U 12-30 00:00: 00 [facility] No Known Allergie s DA Active U 12-26 00:00: 00 [facility] No Known Allergie s DA Active U 12-26 00:00: 00 [facility] No Known Allergie s DA Active U 2019-06 00:00: 00 [facility] No Known Allergie s DA Active U 2019-06 00:00: 00 [facility] No Known Allergie s DA Active U 2019-06 0 00:00: 00 [facility] No Known Allergie s DA Active U 2019-06 0 00:00: 00 [facility] KNOWN ALLERGIE S Drug Class Active [facility] Social History Social Habit Start Date Stop Date Quantity Comments Source Sexual orientation U [facility] Exposure to SARS-CoV-2 (event) 2022-05-30 00:00:00 2022-06-09 13:08:00 Not sure [facility] Tobacco use and exposure 2022-06-09 00:00:00 2022-06-09 00:00:00 Smokeless tobacco non-user [facility] Alcohol intake 2022-06-09 00:00:00 2022-06-09 00:00:00 Current drinker of alcohol (finding) [facility] History of Social function 2022-06-09 00:00:00 2022-06-09 00:00:00 [facility] Sex Assigned At 1995 00:00:00 1995 00:00:00 [facility] Smoking Status Start Date Stop Date Source Tobacco smoking consumption unknown [facility] Never smoked tobacco [facility] Medications Ordered Medication Name Filled Medication Name Start Date Stop Date Current Medication? Ordering Clinician Indication Dosage Frequency Signature (SIG) Comments Components Source clonazePAM 0.5 mg tablet 2021-06 0 00:00: 00 Yes TAKE ONE (1) TABLET(S) BY MOUTH TWICE A DAY NEEDED. [facility] ARIPiprazol e 15 mg tablet 03-12 00:00: 00 Yes [facility] Venlafaxine 225 mg TR24 03-12 00:00: 00 Yes [facility] dextroamphe tamine-amph etamine 30 mg tablet 12-10 00:00: 00 Yes [facility] zolpidem 10 mg tablet 06-13 00:00: 00 Yes [facility] No known medications No [facility] No known medications No Un [facility] Immunizations Ordered Immunization Name Filled Immunization Name Date Status Comments Source Influenza Virus Vaccine Quad IM, Preserv and ABX Free 6 MO-64 YRS 2022-03-09 00:00:00 Completed [facility] TDAP 2022-03-09 00:00:00 Completed [facility] Influenza Virus Vaccine Quad IM, Preserv and ABX Free 6 MO-64 YRS 2022-03-09 00:00:00 Completed [facility] TDAP 2022-03-09 00:00:00 Completed [facility] Influenza Virus Vaccine Quad IM, Preserv and ABX Free 6 MO-64 YRS 2022-03-09 00:00:00 Completed [facility] TDAP 2022-03-09 00:00:00 Completed [facility] SARS-COV-2 COVID-19 VACCINE, BIVALENT (MODERNA BOOSTER) 2020-09-05 00:00:00 Completed [facility] SARS-COV-2 COVID-19 VACCINE, BIVALENT (MODERNA BOOSTER) 2020-09-05 00:00:00 Completed [facility] SARS-COV-2 COVID-19 VACCINE, BIVALENT (MODERNA BOOSTER) 2020-09-05 00:00:00 Completed [facility] SARS-COV-2 COVID-19 VACCINE - (MODERNA) 2020-08-09 00:00:00 Completed [facility] SARS-COV-2 COVID-19 VACCINE - (MODERNA) 2020-08-09 00:00:00 Completed [facility] SARS-COV-2 COVID-19 VACCINE - (MODERNA) 2020-08-09 00:00:00 Completed [facility] SARS-COV-2 COVID-19 VACCINE, BIVALENT (MODERNA BOOSTER) Unknown Completed [facility] Influenza Virus Vaccine Quad IM, Preserv and ABX Free 6 MO-64 YRS (FLUCELVAX) Unknown Completed [facility] TDAP Unknown Completed [facility] SARS-COV-2 COVID-19 VACCINE - (MODERNA) Unknown Completed [facility] SARS-COV-2 COVID-19 VACCINE, BIVALENT (MODERNA BOOSTER) Unknown Completed [facility] Influenza Virus Vaccine Quad IM, Preserv and ABX Free 6 MO-64 YRS (FLUCELVAX) Unknown Completed [facility] TDAP Unknown Completed [facility] SARS-COV-2 COVID-19 VACCINE - (MODERNA) Unknown Completed [facility] Vital Signs Vital Name Observation Time Observation Value Comments S ource Systolic blood pressure 2022-06-09 19:17:00 113 mm[Hg] [facility] Diastolic blood pressure 2022-06-09 19:17:00 78 mm[Hg] [facility] Heart rate 2022-06-09 19:17:00 97 /min [facility] Body height 2022-06-09 19:17:00 162.6 cm [facility] Body weight 2022-06-09 19:17:00 85.276 kg [facility] BMI 2022-06-09 19:17:00 32.27 kg/m2 [facility] Oxygen saturation in Arterial blood by Pulse oximetry 2022-06-09 19:17:00 95 /min [facility] Systolic blood pressure 2020-02-23 03:01:00 113 mm[Hg] [facility] Diastolic blood pressure 2020-02-23 03:01:00 79 mm[Hg] [facility] Heart rate 2020-02-23 03:01:00 67 /min [facility] Body temperature 2020-02-23 03:01:00 36.94 Shweta [facility] Respiratory rate 2020-02-23 03:01:00 17 /min [facility] Oxygen saturation in Arterial blood by Pulse oximetry 2020-02-23 03:01:00 99 /min [facility] Body height 2020-02-23 01:45:00 162.6 cm [facility] Body weight 2020-02-23 01:45:00 77.111 kg Simultaneous filing. User may not have seen previous data. [facility] BMI 2020-02-23 01:45:00 29.18 kg/m2 [facility] Systolic blood pressure 2020-02-23 03:01:00 113 mm[Hg] [facility] Diastolic blood pressure 2020-02-23 03:01:00 79 mm[Hg] [facility] Heart rate 2020-02-23 03:01:00 67 /min [facility] Body temperature 2020-02-23 03:01:00 36.94 Shweta [facility] Respiratory rate 2020-02-23 03:01:00 17 /min [facility] Oxygen saturation in Arterial blood by Pulse oximetry 2020-02-23 03:01:00 99 /min [facility] Body height 2020-02-23 01:45:00 162.6 cm [facility] Body weight 2020-02-23 01:45:00 77.111 kg Simultaneous filing. User may not have seen previous data. [facility] BMI 2020-02-23 01:45:00 29.18 kg/m2 [facility] Procedures Procedure Date / Time Performed Performing Clinicia n Source ASSIGNMENT OF BENEFITS 2022-06-09 19:07:41 Docto r Unassigned, [place] [facility] [id number] 2020-06-14 00:00:00 CHAKR.07 [facility] [id number] 2020-06-14 00:00:00 CHAKR.07 [facility] US PELVIS > 14 WEEKS 2020-02-23 03:21:05 Deidra Ramirez [facility] LIPASE 2020-02-23 02:56:00 Deidra Ramirez [facility] COMP. METABOLIC PANEL ([id number]) 2020-02-23 02:56:00 Deidra Ramirez [facility] CBC WITH DIFF 2020-02-23 02:56:00 Deidra Ramirez [facility] URINALYSIS 2020-02-23 01:54:00 Deidra Ramirez [facility] NOTICE OF PRIVACY PRACTICES 2020-02-23 01:37:10 Doctor Unassigned, [place] [facility] CONSENT/REFUSAL FOR DIAGNOSIS AND TREATMENT 2020-02-23 01:36:53 Doctor Unassigned, [place] [facility] Encounters Start Date/Time End Date/Time Encounter Type Admission Type Attending Clinicians Care Facility Care Department Encounter ID Source 2020-06-17 10:00:00 Inpatient Beatriz Luciano LD [id number] [facility] 2020-06-13 16:46:00 Inpatient Beatriz Zacarias ADRIENNE [id number] [facility] 2020-04-29 11:47:00 Inpatient Beatriz Zacarias ADRIENNE [id number] [facility] 2020-03-31 21:16:00 Inpatient Beatriz Zacarias ADRIENNE [id number] [facility] 2023-06-22 00:00:00 2023-06-22 00:00:00 Outpatient GC_GCBZW_Ka diyala_S PRIV PRIV [id number] [facility] 2023-05-25 00:00:00 2023-05-25 00:00:00 Outpatient GC_GCBZW_Ka diyala_S PRIV PRIV [id number] [facility] 2023-04-28 00:00:00 2023-04-28 00:00:00 Outpatient GC_GCBZW_Ka diyala_S PRIV PRIV [id number] [facility] 2023-04-26 00:00:00 2023-04-26 00:00:00 Outpatient GC_GCBZW_Ka diyala_S PRIV PRIV [id number] [facility] 2023-04-22 00:00:00 2023-04-22 00:00:00 Patient Secure Msg Doctor Unassigned, [place] [facility] .114 350.1.13.10 4.2.7.2.686 [id number] [facility] 2023-04-20 00:00:00 2023-04-20 00:00:00 Telephone AdumNasreen [facility] 1..114 350.1.13.10 4.2.7.2.686 [id number] [facility] 2022-12-29 09:00:00 2022-12-29 09:00:00 Outpatient Grant CALDERONGENARO [facility] [id number] [facility] 2022-06-09 13:00:00 2022-06-09 13:30:00 Office Visit Tammie Susanna [facility] 1.114 350.1.13.10 4.2.7.2.686 [id number] [facility] 2022-06-09 13:00:00 2022-06-09 13:00:00 Outpatient R ARMANDSUSANNA [facility]S [facility] [id number] [facility] 2022-06-09 00:00:00 2022-06-09 00:00:00 Orders Only Doctor Unassigned, [place] [facility] 1.840.114 350.1.13.10 4.2.7.2.686 [id number] [facility] 2020-12-29 16:32:00 2020-12-30 13:38:00 Inpatient Eileen Gibson [facility].01 [id number] [facility] 2020-12-26 14:52:00 2020-12-26 14:52:00 Outpatient Eileen Berger [facility] [id number] [facility] 2020-11-24 14:31:00 2020-11-24 14:31:00 Outpatient Vandana Crooks [facility] [id number] [facility] 2020-02-27 00:00:00 2020-02-27 00:00:00 Letter (Out) Unknown, Attending [facility] 1..114 350.1.13.10 4.2.7.2.686 [id number] [facility] 2020-02-27 00:00:2020-02-27 00:00:00 Letter (Out) Unknown, Attending [facility] 1.2.840.114 350.1.13.10 4.2.7.2.686 [id number] 2020-02-22 20:47:00 2020-02-22 23:37:00 Emergency Replaced By [facility] 1.2.840.114 350.1.13.10 4.2.7.2.686 [id number] [facility] 2020-02-22 20:47:00 2020-02-22 23:37:00 Emergency [facility] 1.2.840.114 350.1.13.10 4.2.7.2.686 [id number] 2020-02-22 20:47:00 2020-02-22 20:47:00 Emergency [facility] E[facility] [id number] [facility] Results Test Description Test Time Test Comments Results Result Co mments Source CBC W/AUTO [id number] 05:45:00* Test Item Value Reference Range Interpretation Comme nts WHITE BLOOD CELL (test code = WBC) [...] pg 27.3-33.9 N MEAN CELL HGB CONCETRATION ( test code = MCHC) 33.7 gm/dL 32.0-34.2 N RED CELL DISTRIBUTION WIDTH (test code = RDW) 12.4 % 12.2-16.3 N PLATELET COUNT (test code = PLT) 320 K/mm3 134-363 N MEAN PLATELET VOLUME (test c ode = MPV) 10.6 fL 9.2-12.7 N NEUTROPHIL % (test code = NT%) 84.6 [...] = BA#) 0.0 K/mm3 RBC MORPHOLOGY REQUIRED (fernando t code = RBCM) NORMAL NORMAL PLATELET MORPHOLOGY REQUIRED (test code = PLTMR) NORMAL NORMAL AG HEPATITIS B [id number] 21:41:00* Test Item Value Reference Range Interpretation Comme nts AG HEPATITIS B SURFACE (test code = HBSAG) NONREACTIVE NONREACTIVE IS CONSENT FORM SIGNED FOR HIV TESTING? YAB HEPATITIS C [id number] 21:41:00* Test Item Value Reference Range Interpretation Comme nts AB HEPATITIS C (test code = HCVAB) NONREACTIVE NONREACTIVE SIGNAL TO CUTOFF (test code = CUTOFF) <0.02 <0.80 N IS CONSENT FORM SIGNED FOR HIV TESTING? YAB HIV 1 21:41:00* Test Item Value Reference Range Interpretation Comme nts AB HIV 1 2 (test code = KHO88ZQ) NONREACTIVE INDEX NONREACTIVE IS CONSENT FORM SIGNED FOR HIV TESTING? YAB HIV 1 21:41:00* Test Item Value Reference Range Interpretation Comme nts AB HIV 1 2 (test code = UMJ44LA) NONREACTIVE INDEX NONREACTIVE IS CONSENT FORM SIGNED FOR HIV TESTING? YCOVID 19 Asymptomatic IH [id number] 15:50:00* Test Item Value Reference Range Interpretation Comme nts COVID 19 Asymptomatic IH AG (test code = COVNONPUIAG) NEGATIVE NEGATIVE This test has be en authorized only for the detection ofproteins from SARS-CoV-2, not for any other viruses orpathogens. Negative results should be treated as presumptive andconfirmed with a molecular assay, if necessary for patientmanagement. Negative results do not rule out COVID-19 andshould not be used as the sole basis for treatment orpatient management decisions, including infection controldecisions. Negative results should be considered in thecontext of a patient's recent exposures, history and thepresence of clinical signs and symptoms consistent withCOVID-19. This test has not been FDA cleared or approved; the test hasbeen authorized by FDA under an Emergency Use Authorization(EUA) for use by laboratories certified under the CLIA thatmeet the requirements to perform moderate, high or waivedcomplexity tests. This test is authorized for use at thePoint of Care (POC), i.e., in patient care settingsoperating under a CLIA Certificate of Waiver, Certificate ofCompliance, or Certificate of Accreditation. This test is only authorized for the duration of thedeclaration that circumstances exist justifying theauthorization of emergency use of in vitro diagnostic testsfor detection and/or diagnosis of COVID-19 under [place](b)(1) of the Act, 21 U.S.C. 360bbb-3(b)(1), unless theauthorization is terminated or revoked sooner. AG HEPATITIS B [id number] 14:33:00* Test Item Value Reference Range Interpretation Comme nts AG HEPATITIS B SURFACE (test code = HBSAG) NONREACTIVE NONREACTIVE IS CONSENT FORM SIGNED FOR HIV TESTING? YAB HEPATITIS C [id number] 14:33:00* Test Item Value Reference Range Interpretation Comme nts AB HEPATITIS C (test code = HCVAB) NONREACTIVE NONREACTIVE SIGNAL TO CUTOFF (test code = CUTOFF) <0.02 <0.80 N IS CONSENT FORM SIGNED FOR HIV TESTING? YAB HIV 1 14:33:00* Test Item Value Reference Range Interpretation Comme nts AB HIV 1 2 (test code = HOO25FC) NONREACTIVE IS CONSENT FORM SIGNED FOR HIV TESTING? YHCG SERUM [id number] 13:30:00* Test Item Value Reference Range Interpretation Comme nts HCG SERUM QUAL (test code = HCGQL) NEGATIVE URINALYSIS [id number] 13:14:00* Test Item Value Reference Range Interpretation Comme nts UA COLOR (test code = COLU) STRAW YELLOW UA APPEARANCE (test code = APPU) CLEAR CLEAR UA GLUCOSE DIPSTICK (test co de = DGLUU) NEGATIVE NEG UA BILIRUBIN DIPSTICK (test code = BILU) NEGATIVE NEG UA KETONE DIPSTICK (test cod e = KETU) NEGATIVE NEG UA SPECIFIC GRAVITY (test co de = SGU) 1.010 1.001-1.035 N UA BLOOD DIPSTICK (test code = JACY) 2+ NEG A UA PH DIPSTICK (test code = JOSIAH) 6.0 5-9 UA PROTEIN DIPSTICK (test co de = PROU) NEGATIVE NEG UA UROBILINIOGEN DIPSTICK (test code = URO) NEGATIVE mg/dL NEG UA NITRITE DIPSTICK (test co de = LOLA) NEG NEG UA LEUKOCYTE ESTERASE DIPSTI CK (test code = LEUU) NEG NEG UA WBC (test code = WBCU) 0-2 #/hpf NONE SEEN UA RBC (test code = RBCU) 0-2 #/hpf NONE SEEN UA EPITHELIAL CELLS (test co de = EPIU) RARE #/HPF RARE-FEW UA HYALINE CAST (test code = HYALU) 0-2 #/hpf A UA MUCUS (test code = MUCU) RARE NONE SEEN URINE SAMPLE: CLEAN CATCHCBC W/AUTO [id number] 13:00:00* Test Item Value Reference Range Interpretation Comme nts WHITE BLOOD CELL (test code = WBC) [...] pg 27.3-33.9 N MEAN CELL HGB CONCETRATION ( test code = MCHC) 33.1 gm/dL 32.0-34.2 N RED CELL DISTRIBUTION WIDTH (test code = RDW) 12.5 % 12.2-16.3 N PLATELET COUNT (test code = PLT) 296 K/mm3 134-363 N MEAN PLATELET VOLUME (test c ode = MPV) 10.8 fL 9.2-12.7 N NEUTROPHIL % (test code = NT%) 49.9 [...] = BA#) 0.0 K/mm3 RBC MORPHOLOGY REQUIRED (fernando t code = RBCM) NORMAL NORMAL PLATELET MORPHOLOGY REQUIRED (test code = PLTMR) NORMAL NORMAL - US PELVIS [id number] 15:52:00 [facility] 1995 Sex: F Patient Name: LUPIS SHAFFER Unit No: [id number] EXAMS: CPT CODE: [id number] US PELVIS COMPLETE 42514BTBVED ULTRASOUND, 11/24/2020: COMPARISON: None CLINICAL HISTORY: IUD [...] Juliana Hough RDMS Probe: Trnscrbd D/ (1552) t.SDR.AJ13 Orig Print D/T: S: 11/24/2020 (1556) [facility] NAME: LUPIS SHAFFER Radiology Department PHYS: Vandana Sebastian BOILER TECHNICIAN [address] : 1995 AGE: 25 SEX: F [place] [address] LOC: Lee.RAD PHONE #: [phone] EXAM DATE: 11/24/2020 STATUS: REG CLI FAX #: [phone] RAD NO: Page 1 SignedReport Patient Name: LUPIS SHAFFER Unit No: [id number] EXAMS: CPT CODE: [id number] US PELVIS COMPLETE 79082 (Continued) [facility] NAME: LUPIS SHAFFER Radiology Department PHYS: Vandana Sebastian [facility] [address] : 1995 AGE: 25 SEX: F [place] [address] LOC: Lee.RAD PHONE #: [phone] EXAM DATE: 11/24/2020 STATUS: REG CLI FAX #: [phone] RAD NO: Page 2 Signed Report- US TRANSVAGINAL [id number] 15:52:00 [facility] 1995 Sex: F Patient Name: LUPIS SHAFFER Unit No: [id number] EXAMS: CPT CODE: [id number] US TRANSVAGINAL W/PELVIS 38891 PELVIC ULTRASOUND, 11/24/2020: COMPARISON: None CLINICAL HISTORY: [...] x 2.1 x 2.5 cm and appears normal.Doppler flow is demonstrated in both ovaries. No free pelvic fluid. IMPRESSION: Intrauterine deviceis located within the uterus. No acute abnormality identified. at 1552 Reported and signed by: Roc Sullivan MD CC: Technologist: Juliana Hough RDMS Probe: [id number] Trnscrbd D/ (1552) t.NAIN.AJ13 Orig Print D/T: S: 11/24/2020 (1556) [facility] NAME: LUPIS SHAFFER Radiology Department PHYS: [email or web address] - Cl Vandana leslie BOILER TECHNICIAN [address] : 1995 AGE: 25 SEX: F [place] [address] LOC: F.RAD PHONE #: [phone] EXAM DATE: 11/24/2020 STATUS: REG CLI FAX #: [phone] RAD NO:Page 1 Signed Report Patient Name: LUPIS SHAFFER Unit No: [id number] EXAMS: CPT CODE: [id number] USTRANSVAGINAL W/PELVIS 54608 (Continued) [facility] NAME: LUPIS SHAFFER Radiology Department PHYS: Vandana Sebastian BOILER TECHNICIAN [address] : 1995 AGE: 25 SEX: F [place], [place] [address] LOC: F.RAD PHONE #: [phone] EXAM DATE: 11/24/2020 STATUS: RONALDOCLI FAX #: [phone] RAD NO: Page 2 Signed Report- DUP AB/PEL/SC/[id number] 15:52:00 [facility] : 1995 Sex: F Patient Name: LUPIS SHAFFER Unit No: [id number] EXAMS: CPT CODE: [id number] DUP AB/PEL/SC/LTD 92913 PELVIC ULTRASOUND, 11/24/2020: COMPARISON: None CLINICAL HISTORY: [...] Juliana Hough RDMS Probe: Trnscrbd D/ (1552) t.SDR.AJ13 Orig Print D/T: S: 11/24/2020 (1556) [facility] NAME: SHAFFERLUPIS Radiology Department PHYS: Vandana Sherman [id number] : 1995 AGE: 25 SEX: F [place] [address] LOC: Lee.RAD PHONE #: [phone] EXAM DATE: 11/24/2020 STATUS: REG CLI FAX #: [phone] RAD NO: Page 1 SignedReport Patient Name: LUPIS SHAFFER Unit No: [id number] EXAMS: CPT CODE: [id number] DUP AB/PEL/SC/LTD 21525 (Continued) [facility] PHYS: Vandana Sherman BOILER TECHNICIAN [address] : 1995 AGE: 25 SEX: F [place] [address] LOC: Lee.RAD PHONE #: [phone] EXAM DATE: 11/24/2020 STATUS: REG CLI FAX #: [phone] RAD NO: Page 2 Signed ReportAG HEPATITIS B [id number] 19:18:00* Test Item Value Reference Range Interpretation Comme nts AG HEPATITIS B SURFACE (test code = HBSAG) NONREACTIVE NONREACTIVE IS CONSENT FORM SIGNED FOR HIV TESTING? YAB HEPATITIS C [id number] 19:18:00* Test Item Value Reference Range Interpretation Comme nts AB HEPATITIS C (test code = HCVAB) NONREACTIVE NONREACTIVE SIGNAL TO CUTOFF (test code = CUTOFF) 0.07 <0.80 N IS CONSENT FORM SIGNED FOR HIV TESTING? YAB [id number] 19:18:00* Test Item Value Reference Range Interpretation Comme nts AB TREPONEMA (test code = TREPAB) NONREACTIVE NONREACTIVE IS CONSENT FORM SIGNED FOR HIV TESTING? COURTB HIV 1 19:18:00* Test Item Value Reference Range Interpretation Comme nts AB HIV 1 2 (test code = PWF95NL) NONREACTIVE NONREACTIVE Done by [employer] 4[employer] Gen HIV Ag/Ab Combo Screen IS CONSENT FORM SIGNED FOR HIV TESTING? YAG HEPATITIS B [id number] 18:48:00* Test Item Value Reference Range Interpretation Comme nts AG HEPATITIS B SURFACE (test code = HBSAG) NONREACTIVE NONREACTIVE IS CONSENT FORM SIGNED FOR HIV TESTING? YAB HEPATITIS C [id number] 18:48:00* Test Item Value Reference Range Interpretation Comme nts AB HEPATITIS C (test code = HCVAB) NONREACTIVE SIGNAL TO CUTOFF (test code = CUTOFF) <0.80 IS CONSENT FORM SIGNED FOR HIV TESTING? YAB [id number] 18:48:00* Test Item Value Reference Range Interpretation Comme nts AB TREPONEMA (test code = TREPAB) NONREACTIVE NONREACTIVE IS CONSENT FORM SIGNED FOR HIV TESTING? YAB HIV 1 18:48:00* Test Item Value Reference Range Interpretation Comme nts AB HIV 1 2 (test code = OKP45VL) NONREACTIVE IS CONSENT FORM SIGNED FOR HIV TESTING? YCBC W/AUTO [id number] 18:22:00* Test Item Value Reference Range Interpretation Comme nts WHITE BLOOD CELL (test code = WBC) [...] pg 27-35 N MEAN CELL HGB CONCETRATION ( test code = MCHC) 32.4 gm/dL 32.2-34.1 N RED CELL DISTRIBUTION WIDTH (test code = RDW) 13.1 % 12.4-16.5 N PLATELET COUNT (test code = PLT) 234 K/mm3 133-385 N MEAN PLATELET VOLUME (test c ode = MPV) 10.9 fl 9.1-12.7 N NEUTROPHIL % (test code = NT%) 78.4 [...] = BA#) 0.0 K/mm3 RBC MORPHOLOGY REQUIRED (fernando t code = RBCM) NORMAL NORMAL PLATELET MORPHOLOGY REQUIRED (test code = PLTMR) NORMAL NORMAL COVID 19 Asymptomatic IH [id number] 18:08:00* Test Item Value Reference Range Interpretation Comme nts COVID 19 Asymptomatic IH AG (test code = COVNONPUIAG) NEGATIVE NEGATIVE This test has be en authorized only for the detection ofproteins from SARS-CoV-2, not for any other viruses orpathogens. Negative results should be treated as presumptive andconfirmed with a molecular assay, if necessary for patientmanagement. Negative results do not rule out COVID-19 andshould not be used as the sole basis for treatment orpatient management decisions, including infection controldecisions. Negative results should be considered in thecontext of a patient's recent exposures, history and thepresence of clinical signs and symptoms consistent withCOVID-19. This test has not been FDA cleared or approved; the test hasbeen authorized by FDA under an Emergency Use Authorization(EUA) for use by laboratories certified under the CLIA thatmeet the requirements to perform moderate, high or waivedcomplexity tests. This test is authorized for use at thePoint of Care (POC), i.e., in patient care settingsoperating under a CLIA Certificate of Waiver, Certificate ofCompliance, or Certificate of Accreditation. This test is only authorized for the duration of thedeclaration that circumstances exist justifying theauthorization of emergency use of in vitro diagnostic testsfor detection and/or diagnosis of COVID-19 under Dnxyhxo663(b)(1) of the Act, 21 U.S.C. 360bbb-3(b)(1), unless theauthorization is terminated or revoked sooner. COMPREHENSIVE METABOLIC [id number] 13:57:00* Test Item Value Reference Range Interpretation Comme nts SODIUM (test code = NA) 136 mEq/L 135-145 N POTASSIUM (test code = K) 4.8 mEq/L 3.5-5.0 N CHLORIDE (test code = CL) 103 mEq/L 100-115 N CARBON DIOXIDE (test code = CO2) 27 mEq/L 22-31 N ANION GAP (test code = GAP) 11.00 10-20 N GLUCOSE (test code = GLU) 99 mg/dL 65-110 N BLOOD UREA NITROGEN (test co de = BUN) 7 mg/dL 7-18 N GLOMERULAR FILTRATION RATE ( test code = GFR) 149 ml/min >60 N CREATININE (test code = CREAT) 0.5 mg/dL [...] 15 units/L 12-78 N ALKALINE PHOSPHATASE TOTAL ( test code = ALKP) 97 units/L 46-116 N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 did place a stitch for hemostasis purposes. The case was then turned back over to Dr. Berger. Please see dictated operative report for details of procedure. All counts were correct at the end of this portion of the procedure. Dictated By: Roderick Lynn MD WT: OP:KANDI/NILESH/LIZZETH PATIENT NAME: LUPIS SHAFFER Conf#: [id number]/DID#: [id number] Authenticated by Roderick Lynn MD On 12/31/2020 10:58:03 AM at 1058 PATIENT NAME: LUPIS SHAFFER [facility] 2020-06-15 06:42:00 [facility] ([facility]) OB Disch REPORT#:[id number] REPORT STATUS: Signed DATE:06/15/20 TIME: 06 PATIENT: LUPIS COYNE UNIT #: [id number] ROOM/BED: [facility] : 93 AGE: 24 SEX: F ATTEND: Beatriz Zacarias MD ADM AUTHOR: Soha Diego MD * ALL edits or amendments must be made on the electronic/computer document * Subjective Subjective Admission EGA: Weeks: 38 Days: 4 EGA at delivery (wks/days): 38 weeks Status/day: post (day #1) Patient reports: Patient reports: Yes: normal lochia, pain management effective, tolerating po well, voiding well, voiding without pain, tolerating ambulation, flatus. No: complaints. Objective General VS: Vital Signs Date Temp Pulse Resp B/P B/P Mean Pulse Ox FiO2 06/14-06/15 98.2-98.5 63-69 18-19 102-129/63-76 96 Last Documented: Result Date Time B/P 102/63 06/15 0011 Temp 98.5 06/15 0011 Pulse 64 06/15 0011 Resp 18 06/15 0011 Pulse Ox 96 06/14 1610 B/P Mean 85.0 06/14 0245 PATIENT WEIGHT: Weight (lb): Weight (oz): Weight (kg): 89.043548 Physical Exam Neuro: Exam: alert, oriented x3, normal speech, CNII-XII grossly intact Abdomen: post gravid, soft, no abnormal tenderness, no guarding, no rebound tenderness Uterus: involution [...] (Auto) (14.3 - 34.3 %) 14.2 L Hayes % (Auto) (5.1 - 10.4 %) 6.4 Eos % (Auto) (0.1 - 3.0 %) 0.4 Baso % (Auto) (0.1 - 1.0 %) 0.2 Neut # (Auto) (K/mm3) 9.9 Lymph # (Auto) (K/mm3) 1.8 Hayes # (Auto) (K/mm3) 0.8 Eos # (Auto) [...] set between the solid lines has been imported from nursing documentation. Any exceptions have been noted below under Provider comments. Delivery date A: 06/14/20 Delivery time A: 0026 Birthweight (gm) A: 3300 Feeding preference: Gender A: Male 1 minute A: 8 5 minutes infant A: 9 10 minutes infant A: Provider comments on imported nursing data: [...] MILLIGRAM ORAL EVERY 8 HR NEEDED. as needed for PAIN Qty = 30 No Refills Prescriptions: e-prescribe at 0727 RPT #:[id number] END OF REPORT [facility] 2020-06-14 07:51:00 [facility] ([facility]) OB Postpart Progr Note REPORT#:[id number] REPORT STATUS: Signed DATE:06/14/20 TIME: 075 PATIENT: LUPIS COYNE UNIT #: [id number] ROOM/BED: [address] : 93 AGE: 24 SEX: F ATTEND: Beatriz Zacarias MD ADM AUTHOR: Beatriz Zacarias MD * ALL edits or amendments must be made on the electronic/computer document * Subjective Subjective Admission EGA: Weeks: 38 Days: 4 EGA at delivery (wks/days): 38 weeks Status/day: post (day 0) Comments: Doing well this AM. Sore, but pain tolerable. Has ambulated and voided. is going well. Objective Nursing Documentation Review Nursing data: The data set between the solid lines has been imported from nursing documentation. Any exceptions have been noted below under Provider comments. Feeding preference: Provider comments [...] WEIGHT: Weight (lb): Weight (oz): Weight (kg): 89.925536 Physical Exam Lungs: unlabored breathing Neuro: Exam: [...] (Auto) (14.3 - 34.3 %) 14.2 L Hayes % (Auto) (5.1 - 10.4 %) 6.4 Eos % (Auto) (0.1 - 3.0 %) 0.4 Baso % (Auto) (0.1 - 1.0 %) 0.2 Neut # (Auto) (K/mm3) 9.9 Lymph # (Auto) (K/mm3) 1.8 Hayes # (Auto) (K/mm3) 0.8 Eos # (Auto) [...] weeks gestation of Assessment: nml progress, breast feeding w/o diff Plan: routine care, discharge tomorrow at 0752 RPT #:[id number] END OF REPORT [facility] 2020-06-14 00:41:00 [facility] ([facility]) OB Delivery Note REPORT#:[id number] REPORT STATUS: Signed DATE:06/14/20 TIME: 004 PATIENT: LUPIS COYNE UNIT #: [id number] [facility] AGE: 24 SEX: F ATTEND: Beatriz Zacarias MD ADM AUTHOR: Beatriz Zacarias MD * ALL edits or amendments must be made on the electronic/computer document * OB Delivery Nursing Documentation Review Nursing data: The data set between the solid lines has been imported from nursing documentation. Any exceptions have been noted below under Provider comments. _ ROM date: ROM time: Membranes rupture method: AROM Amniotic fluid color: Clear Amniotic fluid amount: Steroids prior to arrival: Antibiotic prophylaxis given: evaluation at delivery: Delivery date A: Delivery time infant A: Birthweight (gm) A: Weight (lb) infant A: Weight (oz) A: Gender infant A: Male 1 minute infant A: 5 minutes infant A: 10 minutes A: Cord pH obtained infant A: Vacuum time infant A: Vacuum # pulls A: Vacuum # popoffs infant A: QBL at delivery: __ Provider comments on imported nursing data: [] Pre-delivery GBS status: GBS status: negative [place] evaluation at delivery: NRP certified personnel Admission EGA: Weeks: 38 Days: 4 EGA at delivery (wks/days): 38 weeks Baby A Information Baby A information Delivery date: 06/14/20 Delivery time: 0026 status: live born Wt of baby: not [...] at delivery: <1000 ml, no more than expected EBL at delivery (ml's): 300 at 0044 RPT #:[id number] END OF REPORT [facility] 2020-06-13 22:13:00 [facility] ([facility]) OB Intrapart Prog Note REPORT#:[id number] REPORT STATUS: Signed DATE:06/13/20 TIME: 2212 PATIENT: LUPIS COYNE UNIT #: [id number] ROOM/BED: [address] : 93 AGE: 24 SEX: F ATTEND: Beatriz Zacarias MD ADM AUTHOR: Beatriz Zacarias MD * ALL edits or amendments must be made on the electronic/computer document * Subjective Subjective Admission EGA (wks/days): 38 weeks Comments: Comfortable s/p epidural Objective Nursing Documentation Review Nursing data: The data set between the solid lines has been imported from nursing documentation. Any exceptions have been noted below under Provider comments. __ ROM date: ROM time: __ Provider comments on imported nursing data: [] General VS: Last Documented: Result Date Time B/P Mean 90.0 06/13 2158 B/P 123/71 06/13 2159 Pulse 75 06/13 2158 Temp 98.6 06/13 1909 Resp 16 06/13 1909 Vital Signs Date Temp Pulse Resp B/P B/P Mean Pulse Ox FiO2 06/13 98.6 59-90 16 117-136/68-88 90.0-104.0 PATIENT WEIGHT: Weight (lb): Weight (oz): Weight (kg): 89.416016 Objective Cervical/ exam: Dilatation (cm): 5/50/-2, AROM copious clear fluid Pelvis exam: Clinically adequate for this fetus: [...] (Auto) (14.3 - 34.3 %) 14.2 L Hayes % (Auto) (5.1 - 10.4 %) 6.4 Eos % (Auto) (0.1 - 3.0 %) 0.4 Baso % (Auto) (0.1 - 1.0 %) 0.2 Neut # (Auto) (K/mm3) 9.9 Lymph # (Auto) (K/mm3) 1.8 Hayes # (Auto) (K/mm3) 0.8 Eos # (Auto) [...] doing well Plan: anticipate vag delivery, epidural anesthesia, continue oxytocin at 2215 RPT #:[id number] END OF REPORT [facility] 2020-06-13 18:08:00 [facility] ([facility]) DT History Physical REPORT#:[id number] REPORT STATUS: Signed DATE:06/13/20 TIME: 1808 PATIENT: LUPIS COYNE UNIT #: [id number] ROOM/BED: [address] : 93 AGE: 24 SEX: F ATTEND: Beatriz Zacarias MD ADM AUTHOR: Beatriz Zacarias MD * ALL edits or amendments must be made on the electronic/computer document * History Physical History Physical CC: contractions HPI: 24 year old @ 38 weeks here for contractions. Patient has a [...] Anatomy U/S: Dr. Mosquera 02/04/20 EFW 62%ile normal anatomy and screening echo due to maternal afib, variable presentation and anterior placenta Growth US (06/02): vertex EFW 76%ile 3318g 2nd trimester labs: CBC: 12.2 / 36.0 < 218 1hr GTT: 67 3rd trimester CBC: 11.7 / 35.0 < 231 3rd trimester RPR: NR 3rd trimester HIV: negative GBS: negative OB CHECKLIST: Zika precautions- discussed Personal Injury Specialist: near home, Dr. Hayden in the hospital Infant feeding: breastfed first for 6 weeks, second she stopped after the hospital due to problems with latching. Desires to try again - consult in hospital Pain management: desires unmedicated (did with her daughter) PN Class: discussed PP Depression: discussed in detail PP Contraception: desires PP BTL if , vasectomy otherwise Dietary counseling: discussed Flu vaccine: 04/11/20 Tdap vaccine: 04/24/20 Pre-[place]: discussed Blood products: accepts Circumcision:desires Cord Blood: discussed Pelvis clinically adequate: yes EFW under 5000 gm: yes OB history: G1. 2012 M 7lb 16oz epidural, preeclampsia G2. 2014 F 7lb 16oz no epidural, precipitous labor G3. current Past medical history: symptomatic palpitations, depression / anxiety, endometriosis Past surgical history: laparoscopy (2019) Allergies: NKDA Meds: PNV Objective BP 138/79 HR 93 T 98.2 Gen NAD Abdomen soft gravid NT SVE 3/60/-3 per RN Ext no edema FHTs 140s / moderate variability / positive accels / no decels Adams ctx q 3-4 min A/P: 24 year old @ 38 weeks here for early labor with history of rapid labor progression 1. Labor: discussed with patient options, recommend admission for augmentation given regular painful contractions and history of rapid labor (patient lives 45 minutes from the hospital), agreed, will admit and augment with pitocin 2x2 2. SIUP @ 38 weeks: FHTs cat I 3. GBS negative 4. Pain: epidural on request 5. Rh positive, rubella immune, its a boy! (desires circumcision) at 1930 RPT #:[id number] END OF REPORT [facility] 2020-04-29 12:39:00 [facility] ([facility]) DT History Physical REPORT#:[id number] REPORT STATUS: Signed DATE:04/29/20 TIME: 1239 PATIENT: LUPIS COYNE UNIT #: [id number] ROOM/BED: : 93 AGE: 24 SEX: F ATTEND: Beatriz Zacarias MD ADM DT: AUTHOR: Beatriz Zacarias MD * ALL edits or amendments must be made on the electronic/computer document * History Physical History Physical CC: nausea, vomiting, heartburn HPI: 24 year old @ 32 weeks here for complaint of nausea / vomiting and heartburn for the last 3 days. She reports intermittent vomiting over the weekend, minimal fluid intake and only eating toast. Non-bloody/ non-bilious emesis. Denies any fevers/ chills. She endorses significant hearburn requiring frequent dosing of Tums associated but no relief. Also reports worsening constipation, her baseline is q 2-3 days and recently has increased to every 4-5 days. Today, reports headache and dizziness on ambulation, prompting her to call the office, routed to [facility] for evaluation. Took tylenol and drank two bottles of water en route and reports dizziness and CAUSEY improved with these interventions OB history: , x 2 Past medical history: endometriosis, atrial fibrillation, depression / anxiety Past surgical history: laparoscopy 2019 Allergies NKDA Meds: PNV Objective: BP 131/72 HR 97 Temp 98.2 F Gen NAD Abdomen soft gravid NT, mild epigastric TTP no rebound/ guarding, negative murphys sign Ext no edema FHTs 130s / moderate variability / positive accels no decels Adams no ctx NST > 30 minutes reviewed by wi LABS Laboratory Tests 04/29 1240 Chemistry Sodium [...] % (Auto) (14.3 - 34.3 %) 15.2 Hayes % (Auto) (5.1 - 10.4 %) 7.3 Eos % (Auto) (0.1 - 3.0 %) 0.6 Baso % (Auto) (0.1 - 1.0 %) 0.2 Neut # (Auto) (K/mm3) 7.2 Lymph # (Auto) (K/mm3) 1.4 Hayes # (Auto) (K/mm3) 0.7 Eos # (Auto) (K/mm3) 0.06 Baso # (Auto) (K/mm3) 0.0 Assessment: poorly controlled heartburn, dehydration Plan: Symptoms improved after IVF bolus, reglan and maalox. Rx Reglan and omeprazole, discussed importance of IVF hydration and bowel regimen. ER return precautions reviewed at 1502 RPT #:[id number] END OF REPORT [facility] 2020-03-31 22:00:00 [facility] ([facility]) OB Triage Visit REPORT#:[id number] REPORT STATUS: Signed DATE:03/31/20 TIME: 2200 PATIENT: LUPIS COYNE UNIT #: [id number] ROOM/BED: : 93 AGE: 24 SEX: F ATTEND: Beatriz Zacarias MD ADM DT: AUTHOR: Irma Forrest MD * ALL edits or amendments must be made on the electronic/computer document * History Chief complaint HPI: Lupis is a 34 y/o @28w0d coming in 24h after intercourse. She says she has had bleeding that started this PM and went through 3 panties with moisture. She says she has had lower abd pressure and pain that is worse with standing. Does not think it is contractions, no dysuria/UTI sx. Has not had it before with other babies. history: : 3 Term: 2 : 0 Abortus: 0 Living children: 2 Previous : none Current Current : EDC: 06/23/20 EGA (weeks/days): 28w0d Past history Past medical history: A fib, bipolar/anxiety Past surgical history: Laparoscopy for endometriosis Social history: no alcohol use, no tobacco use, no drug use Medications: Prenatals Allergies Coded Allergies: No Known Allergies (03/31/20) Objective General VS: Patient Weight Weight (lb): Weight (oz): Weight (kg): 79.447705 131/69 Physical Exam: Cervix: SSE: no blood, [...] or yoga -precautions reviewed at 2212 RPT #:[id number] END OF REPORT [facility] 2020-03-31 22:00:00 [facility]) OB Triage Visit REPORT#:[id number] REPORT STATUS: Signed DATE:03/31/20 TIME: 2199 PATIENT: LUPIS COYNE UNIT #: [id number] ROOM/BED: : 93 AGE: 24 SEX: F ATTEND: Beatriz Zacarias MD ADM DT: AUTHOR: Irma Forrest MD * ALL edits or amendments must be made on the electronic/computer document * See Addendum History Chief complaint HPI: Lupis is a 34 y/o @28w0d coming in 24h after intercourse. She says she has had bleeding that started this PM and went through 3 panties with moisture. She says she has had lower abd pressure and pain that is worse with standing. Does not think it is contractions, no dysuria/UTI sx. Has not had it before with other babies. history: : 3 Term: 2 : 0 Abortus: 0 Living children: 2 Previous : none Current Current : EDC: 06/23/20 EGA (weeks/days): 28w0d Past history Past medical history: A fib, bipolar/anxiety Past surgical history: Laparoscopy for endometriosis Social history: no alcohol use, no tobacco use, no drug use Medications: Prenatals Allergies Coded Allergies: No Known Allergies (03/31/20) Objective General VS: Patient Weight Weight (lb): Weight (oz): Weight (kg): 79.757872 131/69 Physical Exam: Cervix: SSE: no blood, [...] yoga -precautions reviewed at 2212 Addendum 1: 03/31/202218 by Irma Forrest MD Pt also complained of swollen vagina today that has resolved. at 2219 RPT #:[id number] END OF REPORT [facility]"
[2024-02-06] MEDS ORDERED: KETOROLAC 30 MG/ML INJ ONE (02:43)
--- NOTE | 2024-02-06 03:45 | ER ---
Nurse's Notes [facility] Name: Emma Velarde Age: 28 yrs Sex: Female : 1995 Arrival Date: 02/06/2024 Time: 02:14 Bed 9 Private MD: Diagnosis: Pain in right wrist;Avulsion fracture of right third middle phalanx Presentation: 02/05 03:04 Chief complaint: Chief complaint: Patient states: FELT A POP MOVING A BOX, NOW IT IS vc1 SWOLLEN AND HURTS REALLY BAD. 03:05 Coronavirus screen: Client denies travel out of the [place] in the last 14 days. At this vc1 time, the client does not indicate any symptoms associated with coronavirus-19. Ebola Screen: Patient negative for fever greater than or equal to 101.5 degrees Fahrenheit, and additional compatible Ebola Virus Disease symptoms Patient denies exposure to infectious person. Patient denies travel to an Ebola-affected area in the 21 days before illness onset. No symptoms or risks identified at this time. Initial Sepsis Screen: Does the patient meet any 2 criteria? No. Patient's initial sepsis screen is negative. Does the patient have a suspected source of infection? No. Patient's initial sepsis screen is negative. Risk Assessment: Do you want to hurt yourself or someone else? Patient reports no desire to harm self or others. Onset of symptoms was February 05, 2024. 03:05 Method Of Arrival: Ambulatory vc1 03:05 Acuity: JES 4 vc1 Triage Assessment: 03:09 General: Appears in no apparent distress. uncomfortable, slender, well groomed, well vc1 developed, well nourished, Behavior is calm, cooperative, appropriate for age. Pain: Complains of pain in right hand and right wrist Pain does not radiate. Pain currently is 8 out of 10 on a pain scale. Quality of pain is described as sharp. EENT: No deficits noted. No signs and/or symptoms were reported regarding the EENT system. Neuro: Level of Consciousness is awake, alert, obeys commands, Oriented to person, place, time, situation, Appropriate for age. Cardiovascular: Capillary refill < 3 seconds Patient's skin is warm and dry. Respiratory: Airway is patent Respiratory effort is even, unlabored, Respiratory pattern is regular, symmetrical, Breath sounds are clear bilaterally. GI: No deficits noted. No signs and/or symptoms were reported involving the gastrointestinal system. : No deficits noted. No signs and/or symptoms were reported regarding the genitourinary system. Derm: Skin is intact, is healthy with good turgor, Skin is dry, Skin is normal, Skin temperature is warm. Musculoskeletal: Range of motion: limited in right wrist. Injury Description: FELT POP WHILE PUSHING A BOX. 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 - Infectious Disease History:: Denies. - Social history:: Smoking status: Reported history of juuling and/or vaping. - Family history:: not pertinent. Screenin:09 [facility] ED Fall Risk Assessment (Adult) History of falling in the last 3 months, vc1 including since admission No falls in past 3 months (0 pts) Confusion or Disorientation No (0 pts) Intoxicated or Sedated No (0 pts) Impaired Gait No (0 pts) Mobility Assist Device Used No (0 pt) Altered Elimination No (0 pt) Score/Fall Risk Level 0 - 2 = Low Risk Oriented to surroundings, Maintained a safe environment, Educated pt \T\ family on fall prevention, incl call for assistance when getting out of bed. Abuse screen: Denies threats or abuse. Nutritional screening: No deficits noted. Tuberculosis screening: No symptoms or risk factors identified. Assessment: 04:25 General: SEE TRIAGE ASSESSMENT. vc1 Vital Signs: 03:05 BP 124 / 87; Pulse 77; Resp 14; Temp 98.4; Pulse Ox 99% ; Weight 83.91 kg; Height 5 ft. vc1 4 in. ; Pain 8/10; 03:05 Body Mass Index 31.75 (83.91 kg, 162.56 cm) vc1 03:05 Pain Scale: Adult vc1 ED Course: 02:16 Patient arrived in ED. [email or web address] 02:20 Luciano Guillaume MD is Attending Physician. rt 02:56 Hand Right 3 View XRAY In Process Unspecified. EDMS 02:56 Wrist Right 3 View XRAY In Process Unspecified. EDMS 03:05 Carmen Javed RN is Primary Nurse. vc1 03:08 Triage completed. vc1 03:09 Arm band placed on left wrist. vc1 04:24 No provider procedures requiring assistance completed. Patient did not have IV access vc1 during this emergency room visit. Administered Medications: 03:03 Drug: Ketorolac IM 30 mg IM once Route: IM; Site: right deltoid; vc1 04:24 Follow up: Response: No adverse reaction; Marked relief of symptoms; Pain is decreased vc1 Medication: 03:11 VIS not applicable for this client. vc1 Outcome: 03:45 Discharge ordered by MD. rt 04:25 Discharged to home ambulatory, vc1 04:25 Condition: good 04:25 Discharge instructions given to patient, Instructed on discharge instructions, follow up and referral plans. medication usage, Demonstrated understanding of instructions, follow-up care, medications, Prescriptions given X 1, 04:26 Patient left the ED. vc1 Signatures: Dispatcher [employer] EDMS Katie Marin [email or web address] Carmen Javed RN RN vc1 Luciano Guillaume MD MD rt Corrections: (The following items were deleted from the chart) 03:08 03:04 Chief complaint: vc1 vc1
--- NOTE | 2024-02-06 03:46 | EDPHYS ---
Physician Documentation [facility] Name: Emma Velarde Age: 28 yrs Sex: Female : 1995 Arrival Date: 02/06/2024 Time: 02:14 Bed 9 Private MD: ED Physician Luciano Guillaume HPI: 02/05 05:04 This 28 yrs old Female presents to ER via Ambulatory with complaints of Wrist Injury. rt 05:04 Patient reports to the ED with a right wrist pain. Patient states that she was pushing rt a box, felt a pop. Went to office, was found to have an old fracture but no acute findings on the wrist. Ports pain to the hand as well. Denies other acute complaints, symptoms are mild in severity, no other aggravating elevating factors.. [employer]: 03:09 LMP N/A - PARTIAL HYSTERECTOMY, Not vc1 Historical: - Allergies: 03:08 No Known Allergies; vc1 - Home Meds: 03:08 None [Active]; vc1 - PMHx: 03:08 Anxiety; Bipolar disorder; depressive disorder; insomnia; vc1 - PSHx: 03:08 partial hysterectomy; vc1 - Immunization history:: Adult Immunizations up to date. - Infectious Disease History:: Denies. - Social history:: Smoking status: Reported history of juuling and/or vaping. - Family history:: not pertinent. ROS: 05:04 Constitutional: Negative for fever, chills, and weight loss, Skin: Negative for injury, rt rash, and discoloration, Neuro: Negative for headache, weakness, numbness, tingling, and seizure, 05:04 MS/extremity: Positive for pain, swelling, Exam: 05:04 Constitutional: This is a well developed, well nourished patient who is awake, alert, rt and in no acute distress. Skin: Warm, dry with normal turgor. Normal color with no rashes, no lesions, and no evidence of cellulitis. Neuro: Awake and alert, GCS 15, oriented to person, place, time, and situation. Cranial nerves II-XII grossly intact. Motor strength 5/5 in all extremities. Sensory grossly intact. Cerebellar exam normal. Normal gait. 05:04 Musculoskeletal/extremity: Tenderness to the ulnar aspect of the right wrist, pulses, motor, sensation are intact. Vital Signs: 03:05 BP 124 / 87; Pulse 77; Resp 14; Temp 98.4; Pulse Ox 99% ; Weight 83.91 kg; Height 5 ft. vc1 4 in. ; Pain 8/10; 03:05 Body Mass Index 31.75 (83.91 kg, 162.56 cm) vc1 03:05 Pain Scale: Adult vc1 MDM: 02:24 Patient medically screened. rt 05:04 Differential diagnosis: Fracture, sprain. Data reviewed: vital signs, nurses notes, rt radiologic studies. Independent interpretation of the following test(s) in the Emergency Department X-Ray: My interpretation is Avulsion fracture syndrome interpretation of x-ray images. Counseling: I had a detailed discussion with the patient and/or guardian regarding the historical points, exam findings, and any diagnostic results supporting the discharge/admit diagnosis, radiology results, the need for outpatient follow up. Response to treatment: the patient's symptoms have mildly improved after treatment. 02/05 02:28 Order name: Hand Right 3 View XRAY rt 02/05 02:28 Order name: Wrist Right 3 View XRAY rt 02/05 03:44 Order name: Wrist Splint; Complete Time: 04:24 rt Administered Medications: 03:03 Drug: Ketorolac IM 30 mg IM once Route: IM; Site: right deltoid; vc1 04:24 Follow up: Response: No adverse reaction; Marked relief of symptoms; Pain is decreased vc1 Disposition Summary: 02/06/24 03:45 Discharge Ordered Notes: Location: Home rt Problem: new rt Symptoms: have improved rt Condition: Stable rt Diagnosis - Pain in right wrist rt - Avulsion fracture of right third middle phalanx rt Followup: rt - With: Private Physician - When: 2 - 3 days - Reason: Discharge Instructions: - Discharge Summary Sheet rt - Wrist Pain, Adult rt Forms: - Work release form vc1 - Medication Reconciliation Form rt - Antibiotic Education rt - Prescription Opioid Use rt - Patient Portal Instructions rt - Leadership Thank You Letter rt Prescriptions: - Tramadol 50 mg Oral Tablet - take 1 tablet ORAL route every 8 hours as needed; 12 tablet; Refills: 0, rt Product Selection Permitted Signatures: [facility] RN RN vc1 Luciano Guillaume MD MD rt
[2024-02-06 04:36] VITALS: BP 124/87; TEMP 98.4; O2SAT 99
--- NOTE | 2024-02-06 13:40 | RAD REPORT ---
EXAM DESCRIPTION: RAD - Wrist Right 3 View - 02/06/2024 2:55 am CLINICAL HISTORY: Pain. TECHNIQUE: Frontal, lateral and oblique views of the right wrist. COMPARISON: XR Wrist right 02/05/2024. FINDINGS: Bones/joints: Remote distal radial fracture deformity. No acute fracture. No disloca tion. Soft tissues: Unremarkable. No radiopaque foreign body. IMPRESSION: No acute injury. Electronically signed by: Brigida Lay MD 02/06/2024 03:20 AM CDT Due to temporary technical issues with the PACS/Fluency reporting system, reports are being signed by the in house radiologist without review as a courtesy to ensure prompt reporting. The interpreting r adiologist is fully responsible for the content of the report.
--- NOTE | 2024-02-06 13:42 | RAD REPORT ---
EXAM DESCRIPTION: RAD - Hand Right 3 View - 02/06/2024 2:54 am CLINICAL HISTORY: Pain. TECHNIQUE: Frontal, lateral and oblique views of the right hand. COMPARISON: No relevant prior studies available. FINDINGS: Bones/joints: Minimally displaced avulsion fracture at the volar aspect of the third mid dle phalangeal base. No dislocation. Soft tissues: Unremarkable. No radiopaque foreign body. IMPRESSION: Third middle phalangeal base volar plate avulsion fracture. Electronically signed by: Brigida Lay MD 02/06/2024 03:25 AM CDT Due to temporary technical issues with the PACS/Fluency reporting system, reports are being signed by the in house radiologist without review as a courtesy to ensure prompt reporting. The interpreting r adiologist is fully responsible for the content of the report.
== END 2024-02-06 04:26 | disposition home or self-care (01) ==
LOC: ER 02:14
DX: S62.602A Fracture of unspecified phalanx of right middle finger, initial encounter for closed fracture (principal); M25.531 Pain in right wrist
CPT/HCPCS: 96372; 99284